=== PATIENT | female | born 1940 | race Caucasian/White ===

== ENCOUNTER → 2018-01-21 12:50 | Outpatient (CLI) | payer MEDICARE ==
[2016-06-18 08:53] VITALS: BMI 26.1
[~2018-01-21 12:50] MED LIST: BAYER CHEWABLE81 MG PO; ISORDIL5 MG PO; JANUVIA100 MG PO; LEVOTHYROXINE100 MCG PO; LIBRIUM 10 MG C10 MG PO; PLAVIX75 MG PO; ZESTRIL40 MG PO
== END | disposition home or self-care (01) ==
LOC: D.MRI 12:50
DX: R51 Headache (principal); R55 Syncope and collapse

== ENCOUNTER → 2018-02-17 09:06 | Outpatient (CLI) | payer MEDICARE ==
[2016-06-18 08:53] VITALS: BMI 26.1
== END | disposition home or self-care (01) ==
LOC: D.CT 09:06
DX: I65.23 Occlusion and stenosis of bilateral carotid arteries (principal)

== ENCOUNTER 2018-06-28 07:26 | Outpatient (CLI) | payer MEDICARE ==
[2016-06-18 08:53] VITALS: Ht 165.1 cm; Wt 71.8 kg
[~2018-06-28] VITALS: Ht 165.1 cm; Wt 71.8 kg
--- NOTE | ~2018-06-28 | OP ---
PATIENT NAME: MARLENY FITZPATRICK MEDICAL RECORD: [id number] :44 LOCATION:D.CAT ADMISSION DATE: SURGEON: XOCHITL CABRERA MD DATE OF OPERATION: 06/28/2018 PROCEDURES: 1. PTCA stent LAD. 2. PTCA stent left circumflex. 3. Intravascular ultrasound of LAD. 4. Intravascular ultrasound of left circumflex. 5. Left heart catheterization. 6. Selective coronary angiography. 7. Left ventriculogram. INDICATION: Unstable angina and coronary artery disease. PROCEDURE IN DETAIL: After informed consent was obtained and after a detailed description of risks, benefits as well as alternative therapies, the patient elected to proceed with angiogram and angioplasty. The right femoral area was prepped and draped in normal sterile fashion. Right femoral artery was cannulated via modified Seldinger technique with placement of 6-Slovenian sheath. All catheters exchanged through this sheath. FINDINGS: Left ventriculogram was performed in standard 30-degree EMMANUEL view, reveals good cardiac wall motion throughout all segments. Overall ejection fraction estimated 60%. SELECTIVE CORONARY ANGIOGRAPHY: 1. Left main showed no significant angiographic disease. 2. Left anterior descending has greater than 75% stenosis confirmed by intravascular ultrasound in the mid vessel. Previously placed stents are widely patent with no significant restenosis. 3. The left circumflex has previously placed stents as well. These are widely patent with no significant restenosis; however, there is a 75% to 80% stenosis in the mid vessel confirmed by intravascular ultrasound. 4. The right coronary artery has mild irregularities, but no flow-limiting stenosis. PTCA STENT OF THE LAD AND CIRCUMFLEX: The LAD was addressed with a 3.0 x 12 mm Integrity. The left circumflex with a 4.0 x 12 mm Integrity. Result was 0% residual stenosis. OVERALL IMPRESSION: Successful PTCA stent of the LAD and circumflex, both going from 75% to 80% initial stenosis to 0% residual. TRANSINT:[id number] Voice Confirmation ID: [id number] DOCUMENT ID: [id number] OPERATIVE REPORT [id number] FITZPATRICKMARLENY ESPARZA XOCHITL SALAZAR MD at 1324 CC: [id number] DICTATION DATE: 06/28/18 1441 FIREBRICK LAYER: 06/28/18 1535 DEP CLI 06/28/18 [facility] [address] [place] [address]
--- NOTE | ~2018-06-28 | CN ---
PATIENT NAME:MARLENY LOUIS MEDICAL RECORD: [id number] : 44 LOCATION:D.CAT ADMIT DATE: ACCOUNT: [id number] CONSULTING PHYSICIAN: XOCHITL CABRERA MD REFERRING PHYSICIAN: SANDRO BHATIA MD DATE OF CONSULTATION: 06/28/2018 CARDIOLOGY CONSULT DIAGNOSES: 1. Atrial fibrillation with rapid ventricular response. 2. Abnormal ECG. 3. Coronary artery disease. 4. Previous percutaneous transluminal coronary angioplasty stent. 5. Hypertension. HISTORY OF PRESENT ILLNESS: Ms. Louis presents with palpitations and some chest heaviness today, was found to be in atrial fibrillation with rapid response. Her EKG is concerning that there is ST-T changes in the inferolateral leads with this. She spontaneously converted to sinus rhythm, was given 80 mg of sotalol, has no symptomatology at this time. PHYSICAL EXAMINATION: GENERAL APPEARANCE: Well-nourished, well-developed, appears stated age. Level of distress, comfortable. PSYCHIATRIC: Mental status, alert, normal affect. Orientation, oriented to time, place and person. EYES: Lids and conjunctiva, noninjected. No discharge, no pallor. ENT: Lips, teeth, gums, normal dentition. Oropharynx, no cyanosis, no pallor. NECK: Carotid arteries, bilateral normal upstroke, no bruits, no thrills. JUGULAR VEINS: No jugular venous pressure or distention. CERVICAL LYMPH NODES: Nontender, nonenlarged. THYROID: Not enlarged. Nontender. No nodules. LUNGS: Respiratory effort, unlabored. CHEST: Normal curvature. No thoracic deformity. No chest wall tenderness. Percussion, resonant. Auscultation, clear. No wheezes, no rales, no rhonchi. CARDIOVASCULAR: Precordial exam, nondisplaced. No heaves or pericardial thrills. Rate and rhythm, regular. Heart sounds, normal S1, normal S2. No S3, no gallop, no rub. Systolic murmur, not heard. Diastolic murmur, not heard. EXTREMITIES: No cyanosis, no edema. Peripheral pulses, full and equal in all extremities, except as noted. No bruits appreciated. ABDOMEN: Soft, nondistended. Normal aorta. No bruit. Nontender. No masses. Liver, nontender, no hepatomegaly. Spleen, nontender, no splenomegaly. MUSCULOSKELETAL: No joint tenderness. No joint swelling. No erythema. NEUROLOGICAL: Normal gait, normal strength, normal tone. SKIN: Warm and dry. OVERALL IMPRESSION: Atrial fibrillation with EKG changes, most likely this is ischemic in nature. We will proceed with coronary angiography. Further care depends upon findings of the angiography. TRANSINT:[id number] Voice Confirmation ID: [id number] DOCUMENT ID: [id number] CONSULT REPORT [id number] MARLENY LOUIS JEFFREY MD at 1324 CC: [id number] DICTATION DATE: 06/28/18 0942 SUPERVISOR RESPIRATORY: 06/28/18 1019 DEP CLI 06/28/[address] [facility] [address] [place] [address]
--- NOTE | ~2018-06-28 | HEMODYNAMI ---
PATIENT:MARLENY FITZPATRICK MEDICAL RECORD: [id number] : 44 LOCATION:D. ADMISSION DATE: 06/28/18 Generatedon:06/28/201814:43 Patient name: MARLENY FITZPATRICK Patient #: [id number] : 1940 Date of study: 06/28/2018 Page: Of Hemodynamic Procedure Report Patient Data Patient Demographics Procedure consent was obtained First Name: MARLENY Gender: Female Last Name: NANETTE : 1940 [facility] Initial: SHOLA Age: 77 year(s) Patient #: [id number] Race: SSN: [id number] Additional ID: [id number] Contact details Address: [place] [address] State: [place] City: [place] Zip code: [address] Past Medical History Allergies Allergen Reaction Date Comments Reported Other allergy 06/18/2016 Cephlexin, Hydrocodone, adhesive Admission Admission Data Admission Date: 06/28/2018 Admission Time: 7:26 Weight (lbs.): 158.73 Weight (kg.): 72 Lab Results Lab Result Date: 06/28/2018 Lab Result Time: 0:00 Biochemistry Name Units Result Min Max BUN mg/dl 9 --(*---)-- 7 18 Creatinine mg/dl 0.8 --(-*--)-- 0.6 1.3 CBC Name Units Result Min Max Hemoglobin g/dl 15.3 --(-*--)-- 13.5 17.5 Platelets 10^3/l 235 --(-*--)-- 130 400 Procedure Procedure Types Cath Procedure Diagnostic Procedure [facility] w/Coronaries FFR/IVUS Intra-Coronary IVUS Initial Intra-Coronary IVUS Additional PCI Procedure Coronary Stent Coronary Stent Initial x2 Procedure Description Procedure Date Procedure Date: 06/28/2018 Procedure Start Time: 14:20 Procedure End Time: 14:41 Procedure Staff Name Function John Mueller MD Performing Physician Wilder Roberson RT Monitor Tana Stone RN Nurse Jody Borja RT Scrub Procedure Data Cath Procedure Fluoroscopy Diagnostic fluoroscopy Total fluoroscopy Time: 4.8 time: 4.8 min min Diagnostic fluoroscopy Total fluoroscopy dose: 359 dose: 359 mGy mGy Contrast Material Contrast Material Type Amount (ml) Isovue 300 99 Entry Location Entry Primary Successful Side Size Upsize Upsize Entry Closure Succes sful Closure Location (Fr) 1 (Fr) 2 (Fr) Remarks Device Remarks Femoral Right 5 Fr 6 Fr Exoseal artery Short Estimated blood loss: 10 ml Diagnostic catheters Device Type Used For End Catheter Placement MULTIPACK Pigtail 5 Fr Procedure catheter MULTIPACK JL 4.0 5Fr Procedure catheter MULTIPACK 3DRC 5Fr Procedure catheter Procedure Complications No complications Procedure Medications Medication Administration Route Dosage Oxygen etCO2 Nasal cannula 2 l/min Lidocaine 2% added to field 20 Heparin Flush Bag added to field 2 bags (1000units/500ml NS) 0.9% NaCl I.V. 100 ml/hr Versed I.V. 1 mg Fentanyl I.V. 50 mcg Heparin Bolus I.V. 4000 units Versed I.V. 0.5 mg Fentanyl I.V. 25 mcg Hemodynamics Rest HGB: 15.3 (g/dl) Heart Rate: 61 (bpm) Pressure Samples Time Site Value (mmHg) Purpose Heart Use Rate(bpm) 14:23 AO 101/52(71) Snapshot 67 Snapshots Pre Cath Intra NCS Post Cath Vital Signs Time Heart Resp SPO2 etCO2 NIBP (mmHg) Rhythm Pain Sedation Rate (ipm) (%) (mmHg) Status Level (bpm) 14:02:52 61 23 99 31.7 156/78(133) NSR 0 (11) 10(A) , No pain 14:07:04 59 16 94 30.9 122/67(95) NSR 0 (11) 10(A) , No pain 14:11:22 62 15 93 39.9 115/63(98) NSR 0 (11) 10(A) , No pain 14:15:32 67 16 94 41.4 107/65(88) NSR 0 (11) 10(A) , No pain 14:19:40 68 18 93 35.4 115/70(104) NSR 0 (11) 9(A) , No pain 14:23:52 92 15 94 32.4 103/65(86) NSR 0 (11) 9(A) , No pain 14:28:00 68 15 94 33.1 115/67(98) NSR 0 (11) 9(A) , No pain 14:32:14 69 14 94 28.6 111/59(83) NSR 0 (11) 9(A) , No pain 14:36:28 72 16 93 35.4 110/58(90) NSR 0 (11) 9(A) , No pain 14:39:50 69 17 95 32.4 111/58(81) NSR 0 (11) 10(A) , No pain Medications Time Medication Route Dose Verified Delivered Reason Notes Effectiveness by by 14:05:38 Oxygen etCO2 2 John Buffie used for Nasal l/min Ervin Stone RN procedure cannula 14:05:48 Lidocaine 2% added 20ml John John for local to vial Ervin Mueller MD anesthetic field 14:05:54 Heparin Flush added 2 John John used for Bag to bags Ervin Mueller MD procedure (1000units/500ml field NS) 14:06:04 0.9% NaCl I.V. 100 John Buffie Per physician ml/hr Ervin Stone RN 14:15:26 Versed I.V. 1 mg John Buffie for sedation Ervin Stone RN 14:15:33 Fentanyl I.V. 50 John Buffie for sedation mcg Ervin Stone RN 14:30:00 Heparin Bolus I.V. 4000 Johnradha Gastonie for verif ied units Ervni Stone RN anticoagulation with dr mueller 14:35:04 Versed I.V. 0.5 John Buffie for sedation mg Ervin Stone RN 14:35:10 Fentanyl I.V. 25 John Buffie for sedation mcg Ervin Stone RN Procedure Log Time Note 13:31:43 Time tracking: Regular hours (M-F 7:00 - 5:00) 13:31:47 Plan of Care:Hemodynamics will remain stable., Cardiac rhythm will remain stable., Comfort level will be maintained., Respiratory function will remain adequate., Patient/ family verbilizes understanding of procedure., Procedure tolerated without complication., Recovers from procedure without complications.. 13:42:37 Wilder Da RT(R) sent for patient. Start room use. 13:54:44 Patient received from ED to CCL 3 Alert and oriented. Tansferred to table in Supine position. 13:54:47 Warm blankets applied, and yessica hugger turned on for patient comfort. 13:54:47 Correct patient and procedure confirmed by team. 13:54:49 Signed procedure consent form obtained from patient. 13:54:49 ECG and BP/O2 sat monitors applied to patient. 13:54:50 Full Disclosure recording started 14:00:46 Vital chart was started 14:00:53 Rhythm: atrial fibrillation 14:03:08 Baseline sample Acquired. 14:03:15 H&P Date Dictated: 06/28/2018 Emergent; H&P N/A. 14:03:15 Pre-procedure instructions explained to patient. 14:03:16 Pre-op teaching completed and patient verbalized understanding. 14:03:24 Family in waiting room. 14:03:25 Patient NPO since Midnight. 14:03:27 Is the patient allergic to Iodine/contrast media? No. 14:03:29 Is patient on blood thinner?Yes 14:03:31 ACC The patient was administered the following blood thiners within the last 24 hours: ACCPlavix 14:03:33 Patient diabetic? Yes. 14:03:39 If diabetic: On Metformin? No 14:03:42 Previous problem with sedation/anesthesia? No ? 14:03:42 Snore? Yes 14:03:44 Sleep apnea? Yes 14:03:45 Deviated septum? No 14:03:46 Opens mouth fully? Yes 14:03:47 Sticks out tongue? Yes 14:03:49 Airway obstruction? No ? 14:03:52 Dentures? No ? 14:03:55 Pre procedure: right dorsailis pedis pulse 1+ Palpable, but thready & weak; easily obliterated 14:03:57 Patient pain scale 0/10 ?. 14:04:01 IV patent on arrival in left forearm with 0.9% NaCl at [facility]. 14:04:04 Lab results completed and on chart. 14:04:06 Right groin area was prepped with chlora-prep and draped in sterile fashion 14:04:07 Alarms reviewed by R. N. 14:04:07 Sharps counted by scrub and verified by REdisonN. 14:05:38 Oxygen 2 l/min etCO2 Nasal cannula was administered by Tana Stone RN; used for procedure; 14:05:48 Lidocaine 2% 20ml vial added to field was administered by John Mueller MD; for local anesthetic; 14:05:54 Heparin Flush Bag (1000units/500ml NS) 2 bags added to field was administered by John Mueller MD; used for procedure; 14:05:57 Use device set Femoral Dx 14:05:59 Tegaderm 4 x 4 (1626W) opened to sterile field. 14:06:00 ACIST Manifold (02274) opened to sterile field. 14:06:01 ACIST Hand Control (61407) opened to sterile field. 14:06:03 ACIST Syringe (33789) opened to sterile field. 14:06:03 Bag Decanter (2002S) opened to sterile field. 14:06:03 Medline Cath Pack ([id number]) opened to sterile field. 14:06:04 0.9% NaCl 100 ml/hr I.V. was administered by Tana Stone RN; Per physician; 14:06:05 DIAGNOSTIC WIRE .035 260cm J wire (502794) opened to sterile field. 14:06:11 DIAGNOSTIC Multipack 5Fr catheter set (YY8192) opened to sterile field. 14:06:13 SHEATH 5FR [place] (VKB297) opened to sterile field. 14:06:56 Patient Weight : 158.73 lbs 14:12:38 Lab Result : Creatinine 0.8 mg/dl 14:12:38 Lab Result : BUN 9 mg/dl 14:12:38 Lab Result : Platelets 235 10^3/l 14:12:38 Lab Result : Hemoglobin 15.3 g/dl 14:13:44 --------ALL STOP TIME OUT------ 14:13:45 Final Timeout: patient, procedure, and site verified with staff and physician. All members of the team are in agreement. 14:13:47 Right groin site verified by team. 14:13:49 Physical assessment completed. ASA score P 2 - A patient with mild systemic disease as per John Mueller MD. 14:13:52 Sedation plan: IV Moderate Sedation Medication:Versed, Fentanyl 14:15:26 Versed 1 mg I.V. was administered by Tana Stone RN; for sedation; 14:15:33 Fentanyl 50 mcg I.V. was administered by Tana Stone RN; for sedation; 14:20:06 Procedure started. 14:20:10 Local anesthetic to right femoral artery with Lidocaine 2% by John Mueller MD.INITIAL ACCESS ONLY 14:21:00 A 5 Fr sheath was inserted into the Right Femoral artery 14:21:26 A MULTIPACK Pigtail 5 Fr catheter was advanced over the wire and used for Procedure. 14:21:27 Zero performed for pressure channel P1 14:22:02 LV angiography performed. 14:22:03 LV gram done using EMMANUEL 14:22:10 EF : 55 % 14:: Injector settings: Ml/sec: 10, Volume: 20, 14:22:28 Catheter removed. 14:22:41 A MULTIPACK JL 4.0 5Fr catheter was advanced over the wire and used for Procedure. 14:23:04 Use device set TAU PCI 14:23:16 LCA angiography performed. 14:23:24 SHEATH 6FR [place] (CYW613) opened to sterile field. 14:23:28 CHOICE PT Extra Support 182cm wire ([id number]) opened to sterile field. 14:23:31 INFLATOR Merit BasixCompak (AA0182) opened to sterile field. 14:23:33 Catheter removed. 14:23:40 A MULTIPACK 3DRC 5Fr catheter was advanced over the wire and used for Procedure. 14:24:23 RCA angiography performed. 14:24:24 Catheter removed. 14:24:26 GUIDE 6FR XBLAD 3.5 catheter ([id number]) opened to sterile field. 14:24:33 [place] IVUS Catheter (83659N) opened to sterile field. 14:25:35 Sheath upsized to a 6 Fr Short. 14:25:46 6 Fr XBLAD 3.5 guide catheter was inserted over the wire 14:26:10 CPTXS wire advanced. 14:26:26 Wire advanced across lesion. 14:26:32 IVUS catheter advanced over wire. 14:26:50 IVUS pass to Circ lesion performed. 14:27:40 IVUS catheter removed over wire. 14:30:00 Heparin Bolus 4000 units I.V. was administered by Tana Stone RN; for anticoagulation; verified with dr mueller 14:31:28 Place stent Inflation Number: 1 A INTEGRITY RX 4.0 x 12 stent ([id number]) was prepped and advanced across the Mid CX. The stent was deployed at 13 IRENE for 0:10 (min:sec). 14:31:45 Stent catheter was removed intact over wire. 14:31:53 Wire redirected to LAD. 14:32:31 IVUS catheter advanced over wire. 14:33:02 IVUS pass to LAD lesion performed. 14:33:10 IVUS catheter removed over wire. 14:35:04 Versed 0.5 mg I.V. was administered by Tana Stone RN; for sedation; 14:35:10 Fentanyl 25 mcg I.V. was administered by Tana Stone RN; for sedation; 14:35:25 Place stent Inflation Number: 1 A INTEGRITY RX 3.0 x 12 stent ([id number]) was prepped and advanced across the Mid LAD. The stent was deployed at 15 IRENE for 0:10 (min:sec). 14:36:19 EXOSEAL 6Fr (EX600) opened to sterile field. 14:36:26 Stent catheter was removed intact over wire. 14:36:26 Wire removed. 14:36:27 Guide catheter removed. 14:38:48 Sheath removed intact; hemostasis achieved with Exoseal to the Right Femoral artery. 14:38:51 Procedure ended.(Physican Out) 14:39:57 Fluoroscopy time 04.80 minutes. 14:40:01 Fluoroscopy dose: 359 mGy 14:40:01 Flurop Dose total: 359 14:40:05 Contrast amount:Isovue 300 99ml. 14:40:07 Sharps counted by scrub and verified by R.N. 14:40:08 Insertion/operative site no bleeding no hematoma. 14:40:11 Post-op/insertion site Right Femoral artery dressed using a 4 x 4 and Tegaderm. 14:40:12 Post Procedure Pulses reassessed and unchanged 14:40:14 Post-procedure physical assessment completed. ASA score P 2 - A patient with mild systemic disease as per John Mueller MD. 14:40:16 Post procedure rhythm: unchanged. 14:40:19 Estimated blood loss: 10 ml 14:40:21 Post procedure instruction explained to patient.Patient verbalizes understanding. 14:40:21 Patient needs reinforcement of post procedure teaching. 14:40:32 Procedure type changed to Cath procedure, Diagnostic procedure, LHC, LHC w/Coronaries, FFR/IVUS, Intra-Coronary IVUS Initial, Intra-Coronary IVUS Additional, PCI procedure, Coronary Stent, Coronary Stent Initial x2 14:40:33 Procedure and supply charges have been captured, reviewed, submitted and are correct. 14:40:36 Procedure Complication : No complications 14:41:11 Vital chart was stopped 14:41:11 See physician's report for complete and final results. 14:41:13 Report given to Pre/Post Procedure Room. 14:41:23 Patient transfered to Pre/Post Procedure Room with Stretcher. 14:41:25 Procedure ended. 14:41:25 Full Disclosure recording stopped 14:42:41 End room use (Document Last) Intervention Summary Intervention Notes Time ActionType Lesion and Equipment Action# Pressure Duration Attributes Used 14:31:28 Place stent Mid CX INTEGRITY RX 1 13 00:10 4.0 x 12 stent ([id number]) 14:35:25 Place stent Mid LAD INTEGRITY RX 1 15 00:10 3.0 x 12 stent ([id number]) Device Usage Item Name Manufacture Quantity Catalog Number Hospital Part Current Mini mal Lot# / Charge Number Stock Stock Serial# Code Tegaderm 4 x 3M 1 1626W 147585 515296 103971 5 4 (1626W) ACIST Acist 1 19535 443965 854129 024075 5 Manifold Medical (25820) Systems Inc ACIST Hand Acist 1 90890 560763 800547 035339 5 Control Medical (49017) Systems Inc ACIST Acist 1 85744 095809 605564 777742 20 Syringe Medical (69561) Systems Inc Bag Decanter Microtek 1 2001S 847451 61434 997110 5 (2001S) Medical Inc. Medline Cath Medline 1 [id number] 207979 31820 843854 5 Pack ([id number]) DIAGNOSTIC St Jamar 1 237428 580548 458794 088969 30 WIRE .035 260cm J wire (940712) DIAGNOSTIC Cardinal 1 JB5136 002287 12937 713009 30 FIT Biotech Health 5Fr catheter set (VQ9170) SHEATH 5FR Terumo 1 CAC095 883424 291719 804193 5 [place] (GXT997) MULTIPACK Cardinal 1 128194 5 Pigtail 5 Fr Health catheter MULTIPACK JL Cardinal 1 455040 5 4.0 5Fr Health catheter SHEATH 6FR Terumo 1 GLP717 551254 376086 073105 40 [place] (ENZ624) CHOICE PT [place] 1 [id number] 846948 576012 539386 5 Extra Scientific Support 182cm wire ([id number]) INFLATOR Merit 1 NM8966 590525 163307 706010 15 [facility] Medical BasixCompak (VR9325) MULTIPACK Cardinal 1 240069 5 3DRC 5Fr Health catheter GUIDE 6FR Cardinal 1 [id number] 733966 697180 466800 10 XBLAD 3.5 Health catheter ([id number]) [place] 1 57132D 786585 826587 668289 8 [place] IVUS Catheter (06906J) INTEGRITY RX Medtronic 1 [id number] 164043 516744 325260 5 [id number] 4.0 x 12 stent ([id number]) INTEGRITY RX Medtronic 1 [id number] 243177 139921 869062 5 [id number] 3.0 x 12 stent ([id number]) EXOSEAL 6Fr Cardinal 1 EX600 557569 911972 291356 10 (EX600) Health Signature Audit [place] Stage Time Signature Unsigned Intra-Procedure 06/28/2018 Wilder Roberson 2:43:20 PM RT(R) Signatures Monitor : Wilder Roberson RT Signature : Date : Time : [facility] [address] [place] [address]
[2018-06-28 08:00] LABS: BASOPHILS 0.4 % (0-2); EOSINOPHILS 4.3 % (0-7); HEMATOCRIT 44.4 % (36.0-48.0); HEMOGLOBIN 15.3 g/dL (12-16); IMMATURE GRANULOCYTES 0.5 % (0-5); LYMPHOCYTES 32.9 % (15-50); MCH 31.5 pg (26.0-34.0); MCHC 34.5 g/dL (31.0-37.0); MCV 91.4 fL (80.0-100.0); MEAN PLATELET VOLUME 9.3 fL (7.4-10.4); MONOCYTES 8.5 % (2-11); NEUTROPHILS 53.4 % (40-80); PLATELET COUNT 235 10x3/uL (130-400); RBC 4.86 10x6/uL (4.00-5.40); RDW 12.6 % (11.5-14.5); WBC 11.8 10x3/uL (4.8-10.8)
[2018-06-28 08:29] LABS: ALBUMIN 3.2 g/dL (3.4-5.0); ALKALINE PHOSPHATASE 134 U/L (46-116); ALT (SGPT) 74 U/L (10-68); CALC OSMOLALITY 279 mosm/kg (275-300); CALCIUM 9.5 mg/dL (8.5-10.1); CARBON DIOXIDE 25.2 mmol/L (21.0-32.0); CHLORIDE - SERUM 100 mmol/L (98-107); CKMB 0.8 U/L (0.0-3.6); CREATINE KINASE 245 UL (21-215); CREATININE - SERUM 0.8 mg/dL (0.6-1.3); GLUCOSE 232 mg/dL (74-106); MAGNESIUM - SERUM 1.8 mg/dL (1.8-2.4); POTASSIUM - SERUM 4.5 mmol/L (3.5-5.1); PROTEIN - SERUM 8.4 g/dL (6.4-8.2); SODIUM 137 mmol/L (136-145); THYROID STIMULATING HORMONE 6.08 uIU/mL (0.36-3.74); UREA NITROGEN 9 mg/dL (7-18); eGFR NON AFRICAN AMERICAN 74 mL/min (90-120)
[2018-06-28 13:45] VITALS: BP 149/72
== END 2018-06-28 18:25 | disposition home or self-care (01) ==
LOC: D.CATH 07:26 → D.ER 07:26 → EDSTATUS 15:10 → D.CATH 15:11
PROVIDERS: Emergency Medicine
DX: I25.110 Atherosclerotic heart disease of native coronary artery with unstable angina pectoris (principal); Z01.812 Encounter for preprocedural laboratory examination; I48.91 Unspecified atrial fibrillation; R94.31 Abnormal electrocardiogram [ECG] [EKG]; Z95.5 Presence of coronary angioplasty implant and graft; I10 Essential (primary) hypertension

== ENCOUNTER 2018-08-14 15:34 | Observation (INO) | payer MEDICARE ==
[2018-08-14] VITALS (7 sets, daily range): BP systolic 129–162; BP diastolic 57–84; BMI 25.3
[~2018-08-14] VITALS: Ht 165.1 cm; Wt 68.6 kg
--- NOTE | ~2018-08-14 | HEMODYNAMI ---
PATIENT:MARLENY FITZPATRICK MEDICAL RECORD: [id number] : 44 [id number] ADMISSION DATE: 08/14/18 Generatedon:08/15/201811:42 Patient name: MARLENY FITZPATRICK Patient #: [id number] : 1940 Date of study: 08/15/2018 Page: Of Hemodynamic Procedure Report Patient Data Patient Demographics Procedure consent was obtained First Name: MARLENY Gender: Female Last Name: NANETTE : 1940 [facility] Initial: SHOLA Age: 77 year(s) Patient #: [id number] Race: SSN: [id number] Additional ID: [id number] Contact details Address: [place] [address] State: [place] City: [place] Zip code: [address] Past Medical History Allergies Allergen Reaction Date Comments Reported Other allergy 08/15/2018 Cephlexin, Hydrocodone, adhesive, IV Benadryl Natural rubber 08/15/2018 and latex Admission Admission Data Admission Date: 08/14/2018 Admission Time: 17:19 Room #: D.2114 Procedure Procedure Types Cath Procedure Diagnostic Procedure [facility] w/Coronaries Sedation Charges Moderate Sedation up to 15 minutes PCI Procedure Coronary Stent Coronary Stent Initial Procedure Description Procedure Date Procedure Date: 08/15/2018 Procedure Start Time: 11:18 Procedure End Time: 11:41 Procedure Staff Name Function Terrence Carey MD Performing Physician Jody Borja RT Monitor Sean Mooney RN Nurse Khushi Tong RT Scrub Procedure Data Cath Procedure Fluoroscopy Diagnostic fluoroscopy Total fluoroscopy Time: 5.5 time: 5.5 min min Diagnostic fluoroscopy Total fluoroscopy dose: dose: 1220 mGy 1220 mGy Contrast Material Contrast Material Type Amount (ml) Isovue 300 112 Entry Location Entry Primary Successful Side Size Upsize Upsize Entry Closure Succes sful Closure Location (Fr) 1 (Fr) 2 (Fr) Remarks Device Remarks Femoral Right 5 Fr 6 Fr Exoseal artery Short Estimated blood loss: 10 ml Diagnostic catheters Device Type Used For End Catheter Placement MULTIPACK JL 4.0 5Fr LV Angiography catheter MULTIPACK 3DRC 5Fr Right Coronary catheter Angiography MULTIPACK Pigtail 5 Fr LV Angiography catheter Procedure Complications No complications Procedure Medications Medication Administration Route Dosage Oxygen NC 2 l/min Heparin Flush Bag added to field 2 bags (1000units/500ml NS) 0.9% NaCl I.V. 100 ml/hr Lidocaine 2% added to field 20 Fentanyl I.V. 50 mcg Versed I.V. 1 mg Fentanyl I.V. 50 mcg Versed I.V. 1 mg Heparin Bolus I.V. 4000 units Integrilin (Bolus I.V. 6.2 ml 2mg/ml) Integrilin (Bolus wasted 3.8 ml 2mg/ml) Hemodynamics Rest Heart Rate: 71 (bpm) Pressure Samples Time Site Value (mmHg) Purpose Heart Use Rate(bpm) 11:26 LV 122/17,20 EDP 78 11:26 AO 130/63(94) Pullback 80 11:26 LV 114/15,13 Pullback 80 Gradients Valve Time Site 1 Site 2 Mean SEP/DFP Peak To Heart Use (mmHg) (sec/min) Peak Rate (mmHg) (bpm) Aortic 11:26 LV AO 0 7 0 80 114/15,13 130/63(94) Calculations Valve P-P Mean Valve Index Valve Source Name Gradient Area Flow (cm2) Aortic 0 0 0 0 Snapshots Pre Cath Intra NCS Post Cath Vital Signs Time Heart Resp SPO2 etCO2 NIBP (mmHg) Rhythm Pain Sedation Rate (ipm) (%) (mmHg) Status Level (bpm) 11:09:54 79 17 99 0 133/65(113) NSR 0 (11) 10(A) , No pain 11:14:08 69 17 97 0 123/59(103) NSR 0 (11) 10(A) , No pain 11:18:18 68 17 95 0 97/59(80) NSR 0 (11) 10(A) , No pain 11:22:20 74 17 94 0 108/62(83) NSR 0 (11) 9(A) , No pain 11:26:21 80 17 94 0 115/70(105) NSR 0 (11) 9(A) , No pain 11:30:27 85 17 94 0 133/66(98) NSR 0 (11) 9(A) , No pain 11:34:37 92 16 95 0 127/74(97) NSR 0 (11) 9(A) , No pain 11:38:45 97 16 95 0 121/73(92) NSR 0 (11) 9(A) , No pain 11:40:13 89 16 96 0 142/80(106) NSR 0 (11) 9(A) , No pain Medications Time Medication Route Dose Verified Delivered Reason Notes Effectiveness by by 11:10:17 Oxygen NC 2 Terrence Estrada Per physician l/min St Gonzalez Mooney RN, MD 11:10:25 Heparin Flush added 2 Terrence Sean used for Bag to bags [facility] Gonzalez Mooney RN procedure (1000units/500ml field POSADA NS) 11:10:33 0.9% NaCl I.V. 100 Terrence Ashrafy Per physician ml/hr [facility] Gonzalez Mooney RN, MD 11:10:41 Lidocaine 2% added 20ml Terrence Estrada used for to vial [facility] Gonzalez Mooney RN procedure field OPSADA 11:16:47 Fentanyl I.V. 50 Terrence Ashrafy for sedation mcg [facility] Gonzalez Mooney RN, MD 11:16:53 Versed I.V. 1 mg Terrence Estrada for sedation [facility] Gonzalez Mooney RN, MD 11:18:41 Fentanyl I.V. 50 Terrence Ashrafy for sedation mcg [facility] Gonzalez Mooney RN, MD 11:18:45 Versed I.V. 1 mg Terrence Estrada for sedation [facility] Gonzalez Mooney RN, MD 11:29:37 Heparin Bolus I.V. 4000 Terrence Estrada for units [facility] Gonzalez Mooney RN anticoagulation 11:29:49 Integrilin I.V. 6.2 Terrence Estrada for (Bolus 2mg/ml) ml St Gonzalez Mooney RN antiplatelet therapy 11:29:55 Integrilin wasted 3.8 Terrence Estrada for (Bolus 2mg/ml) ml St Gonzalez oMoney RN antiplatelet MD therapy Procedure Log Time Note 10:53:33 Sean Mooney RN sent for patient. Start room use. 10:53:34 Time tracking: Call back (After hours or weekends) 10:53:38 Plan of Care:Hemodynamics will remain stable., Cardiac rhythm will remain stable., Comfort level will be maintained., Respiratory function will remain adequate., Patient/ family verbilizes understanding of procedure., Procedure tolerated without complication., Recovers from procedure without complications.. 11:04:49 Patient received from Pre/Post Procedure Room to CCL 2 Alert and oriented. Tansferred to table in Supine position. 11:08:37 Vital chart was started 11:09:57 Warm blankets applied, and yessica hugger turned on for patient comfort. 11:09:57 Correct patient and procedure confirmed by team. 11:09:58 Signed procedure consent form obtained from patient. 11:09:59 ECG and BP/O2 sat monitors applied to patient. 11:10:01 Full Disclosure recording started 11:10:17 Oxygen 2 l/min NC was administered by Sean Mooney RN; Per physician; 11:10:25 Heparin Flush Bag (1000units/500ml NS) 2 bags added to field was administered by Sean Mooney RN; used for procedure; 11:10:27 Rhythm: sinus rhythm 11:10:33 Baseline sample Acquired. 11:10:33 0.9% NaCl 100 ml/hr I.V. was administered by Sean Mooney RN; Per physician; 11:10:37 H&P Date Dictated: 08/15/2018 Within 30 days and on chart.. 11:10:39 Pre-procedure instructions explained to patient. 11:10:39 Pre-op teaching completed and patient verbalized understanding. 11:10:41 Lidocaine 2% 20ml vial added to field was administered by Sean Mooney RN; used for procedure; 11:10:41 Family in patients room. 11:10:42 Patient NPO since Midnight. 11:11:26 Patient allergic to Other allergyCephlexin, Hydrocodone, adhesive, IV Benadryl 11:11:51 Patient allergic to Natural rubber and latex 11:11:55 Is the patient allergic to Iodine/contrast media? No. 11:12:01 Is patient on blood thinner?Yes 11:12:03 Patient diabetic? No. 11:12:12 ACC The patient was administered the following blood thiners within the last 24 hours: ACCPlavix 11:12:15 If diabetic: On Metformin? No 11:12:20 Previous problem with sedation/anesthesia? No ? 11:12:22 Snore? Yes 11:12:22 Sleep apnea? Yes 11:12:23 Deviated septum? No 11:12:24 Opens mouth fully? Yes 11:12:25 Sticks out tongue? Yes 11:12:26 Airway obstruction? No ? 11:12:30 Dentures? No ? 11:12:33 Pre procedure: right dorsailis pedis pulse 2+ Normal; easily identifiable; not easily obliterated 11:12:34 Patient pain scale 0/10 ?. 11:12:42 IV patent on arrival in left forearm with 0.9% NaCl at [facility]. 11:12:44 Lab results completed and on chart. 11:12:47 Right groin area was prepped with chlora-prep and draped in sterile fashion 11:12:48 Alarms reviewed by R. N. 11:12:49 Sharps counted by scrub and verified by R.N. 11:12:52 Use device set Femoral Dx 11:12:53 ACIST Syringe (12046) opened to sterile field. 11:12:53 Bag Decanter (2002S) opened to sterile field. 11:12:54 Medline Cath Pack ([id number]) opened to sterile field. 11:12:54 DIAGNOSTIC WIRE .035 260cm J wire (318707) opened to sterile field. 11:12:55 ACIST Hand Control (57322) opened to sterile field. 11:12:56 ACIST Manifold (33034) opened to sterile field. 11:12:56 DIAGNOSTIC Multipack 5Fr catheter set (LH6838) opened to sterile field. 11:12:57 Tegaderm 4 x 4 (1626W) opened to sterile field. 11:12:58 SHEATH 5FR Elkins (OTB272) opened to sterile field. 11:15:03 Baseline sample Acquired. 11:16:07 Final Timeout: patient, procedure, and site verified with staff and physician. All members of the team are in agreement. 11:16:08 Right groin site verified by team. 11:16:11 Fire Safety Assessment: A--An alcohol-based skin anteseptic being used preoperatively., C--Open oxygen or nitrous oxide is being used. 11:16:14 Physical assessment completed. ASA score P 2 - A patient with mild systemic disease as per Terrence Carey MD. 11:16:16 Sedation plan: IV Moderate Sedation Medication:Versed, Fentanyl 11:16:47 Fentanyl 50 mcg I.V. was administered by Sean Mooney RN; for sedation; 11:16:53 Versed 1 mg I.V. was administered by Sean Mooney RN; for sedation; 11:18:41 Fentanyl 50 mcg I.V. was administered by Sean Mooney RN; for sedation; 11:18:45 Versed 1 mg I.V. was administered by Sean Mooney RN; for sedation; 11:18:49 Procedure started. 11:18:52 Local anesthetic to right femoral artery with Lidocaine 2% by Terrence Carey MD.INITIAL ACCESS ONLY 11:18:54 Zero performed for pressure channel P1 11:19:53 A 5 Fr sheath was inserted into the Right Femoral artery 11:20:33 A MULTIPACK JL 4.0 5Fr catheter was advanced over the wire and used for LV Angiography. 11:22:36 Use device set [place] PCI 11:22:38 SHEATH 6FR Elkins (VJY947) opened to sterile field. 11:22:42 INFLATOR Merit BasixCompak (FF6614) opened to sterile field. 11:22:44 WHISPER 300cm guide wire ([id number]) opened to sterile field. 11:22:47 GUIDE 6FR XBLAD 3.5 catheter ([id number]) opened to sterile field. 11:23:00 Catheter removed. 11:23:05 A MULTIPACK 3DRC 5Fr catheter was advanced over the wire and used for Right Coronary Angiography. 11:23:51 Catheter removed. 11:23:58 A MULTIPACK Pigtail 5 Fr catheter was advanced over the wire and used for LV Angiography. 11:26:07 LV gram done using EMMANUEL 11:26:10 LV hemodynamics recorded. 11:26:12 Injector settings: Ml/sec: 10, Volume: 20, 11:26:25 Catheter removed. 11:27:22 Sheath upsized to a 6 Fr Short. 11:27:32 6 Fr XBLAD 3.5 guide catheter was inserted over the wire 11:29:37 Heparin Bolus 4000 units I.V. was administered by Sean Mooney RN; for anticoagulation; 11:29:49 Integrilin (Bolus 2mg/ml) 6.2 ml I.V. was administered by Sean Mooney RN; for antiplatelet therapy; 11:29:55 Integrilin (Bolus 2mg/ml) 3.8 ml wasted was administered by Sean Mooney RN; for antiplatelet therapy; 11:30:20 WHISPER wire advanced. 11:32:57 Place stent Inflation Number: 1 A RADHA OTW 2.5 x 15 stent ([id number]) was prepped and advanced across the Dist LAD. The stent was deployed at 14 IRENE for 0:30 (min:sec). 11:34:18 Stent catheter was removed intact over wire. 11:36:34 Inflation number: 1 The NC EUPHORA 3.5 x 15 balloon ([id number]) was reinflated across the Prox LAD, to 12 IRENE for 0:25 (min:sec). 11:37:14 Balloon removed over the wire. 11:37:33 Wire removed. 11:37:33 Guide catheter removed. 11:37:42 Sheath removed intact; hemostasis achieved with Exoseal to the Right Femoral artery. 11:37:46 Procedure ended.(Physican Out) 11:38:24 Fluoroscopy time 05.50 minutes. 11:38:33 Flurop Dose total: 1220 11:38:33 Fluoroscopy dose: 1220 mGy 11:38:37 Contrast amount:Isovue 300 112ml. 11:38:38 Sharps counted by scrub and verified by R.N. 11:38:40 Insertion/operative site no bleeding no hematoma. 11:38:43 Post-op/insertion site Right Femoral artery dressed using a 4 x 4 and Tegaderm. 11:38:47 Post right femoral artery:stable, clean and dry 11:38:48 Post Procedure Pulses reassessed and unchanged 11:38:51 Post-procedure physical assessment completed. ASA score P 2 - A patient with mild systemic disease as per Terrence Carey MD. 11:39:15 Post procedure rhythm: unchanged. 11:39:18 Estimated blood loss: 10 ml 11:39:20 Post procedure instruction explained to patient.Patient verbalizes understanding. 11:39:20 Patient needs reinforcement of post procedure teaching. 11:39:44 Procedure type changed to Cath procedure, Diagnostic procedure, LHC, LHC w/Coronaries, Sedation Charges, Moderate Sedation up to 15 minutes, PCI procedure, Coronary Stent, Coronary Stent Initial 11:39:49 Procedure Complication : No complications 11:39:52 See physician's report for complete and final results. 11:40:08 EXOSEAL 6Fr (EX600) opened to sterile field. 11:41:37 Procedure and supply charges have been captured, reviewed, submitted and are correct. 11:41:39 Vital chart was stopped 11:41:41 Report given to PCU. 11:41:45 Patient transfered to PCU with Bed. 11:41:56 Procedure ended. 11:41:56 Full Disclosure recording stopped 11:42:02 End room use (Document Last) Intervention Summary Intervention Notes Time ActionType Lesion and Equipment Action# Pressure Duration Attributes Used 11:32:57 Place stent Dist LAD RADHA OTW 2.5 1 14 00:30 x 15 stent ([id number]) 11:36:34 Reinflate Prox LAD NC EUPHORA 1 12 00:25 balloon 3.5 x 15 balloon ([id number]) Device Usage Item Name Manufacture Quantity Catalog Hospital Part Current Minim al Lot# / Number Charge Number Stock Stock Serial# Code ACIST Syringe Acist 1 44956 921789 992479 096454 20 (87671) Medical Systems Inc Bag Decanter Microtek 1 2001S 639234 25709 902289 5 (2001S) Medical Inc. Medline Cath Medline 1 [id number] 193786 52640 913730 5 Pack ([id number]) DIAGNOSTIC St Jamar 1 657823 426673 737740 988355 30 WIRE .035 260cm J wire (090150) ACIST Hand Acist 1 30253 950284 462651 075827 5 Control Medical (54638) Systems Inc ACIST Acist 1 59172 028758 495073 758401 5 Manifold Medical (31705) Systems Inc DIAGNOSTIC Cardinal 1 SR8250 368137 10064 655212 30 Multipack 5Fr Health catheter set (TK8548) Tegaderm 4 x 3M 1 1626W 729692 759173 502256 5 4 (1626W) SHEATH 5FR Terumo 1 IOW410 493987 447460 534105 5 Elkins (WVP759) MULTIPACK JL Cardinal 1 599318 5 4.0 5Fr Health catheter SHEATH 6FR Terumo 1 BKX739 879424 123704 887514 40 Elkins (IXS981) INFLATOR [facility] 1 YN1917 696087 621290 224069 15 [facility] BasixCompak (MM0714) WHISPER 300cm Lyman 1 [id number] 519786 297860 679409 5 guide wire Vascular ([id number]) GUIDE 6FR Cardinal 1 [id number] 085167 449700 966573 10 XBLAD 3.5 Health catheter ([id number]) MULTIPACK Cardinal 1 749443 5 3DRC 5Fr Health catheter MULTIPACK Cardinal 1 424817 5 Pigtail 5 Fr Health catheter RADHA OTW 2.5 Medtronic 1 [id number] 443613 48343 529753 5 [id number] x 15 stent ([id number]) NC EUPHORA Medtronic 1 [id number] 375156 758544 964441 1 [id number] 3.5 x 15 balloon ([id number]) EXOSEAL 6Fr Cardinal 1 EX600 762054 525802 665629 10 (EX600) Health Signature Audit [place] Stage Time Signature Unsigned Intra-Procedure 08/15/2018 Jody 11:42:17 AM Counts RT(R) Signatures Monitor : Jody Signature : Counts RT Date : Time : [address] [address]
[2018-08-14 16:10] LABS: BASOPHILS 0.7 % (0-2); EOSINOPHILS 6.7 % (0-7); HEMATOCRIT 42.9 % (36.0-48.0); HEMOGLOBIN 14.8 g/dL (12-16); IMMATURE GRANULOCYTES 0.4 % (0-5); LYMPHOCYTES 21.3 % (15-50); MCH 31.3 pg (26.0-34.0); MCHC 34.5 g/dL (31.0-37.0); MCV 90.7 fL (80.0-100.0); MEAN PLATELET VOLUME 9.4 fL (7.4-10.4); MONOCYTES 6.7 % (2-11); NEUTROPHILS 64.2 % (40-80); PLATELET COUNT 236 10x3/uL (130-400); RBC 4.73 10x6/uL (4.00-5.40); RDW 12.6 % (11.5-14.5); WBC 10.8 10x3/uL (4.8-10.8)
[2018-08-14 16:27] LABS: APTT 34.6 SECONDS (22.8-39.4); INR 1.01 (0.85-1.17); PROTIME 12.8 SECONDS (11.6-15.0)
[2018-08-14 16:28] LABS: D-DIMER-QUANTITATIVE 0.31 ug/mLFEU (0.20-0.54)
[2018-08-14 16:33] LABS: ALBUMIN 3.3 g/dL (3.4-5.0); ALKALINE PHOSPHATASE 116 U/L (46-116); ALT (SGPT) 63 U/L (10-68); BILIRUBIN - TOTAL 0.44 mg/dL (0.2-1.3); CALC OSMOLALITY 282 mosm/kg (275-300); CALCIUM 9.1 mg/dL (8.5-10.1); CARBON DIOXIDE 28.6 mmol/L (21.0-32.0); CHLORIDE - SERUM 101 mmol/L (98-107); CREATININE - SERUM 0.8 mg/dL (0.6-1.3); GLUCOSE 196 mg/dL (74-106); POTASSIUM - SERUM 4.4 mmol/L (3.5-5.1); PROTEIN - SERUM 8.4 g/dL (6.4-8.2); SODIUM 139 mmol/L (136-145); UREA NITROGEN 13 mg/dL (7-18); eGFR NON AFRICAN AMERICAN 74 mL/min (90-120)
[2018-08-14 16:49] LABS: CKMB 0.6 U/L (0.0-3.6); LIPASE 152 U/L (73-393)
[2018-08-14 16:50] LABS: TROPONIN-I 0.205 ng/mL (0.000-0.060)
[2018-08-14 18:12] LABS: CKMB 0.5 U/L (0.0-3.6); CREATINE KINASE 212 UL (21-215)
[2018-08-14 18:17] LABS: TROPONIN-I 0.249 ng/mL (0.000-0.060)
--- NOTE | 2018-08-14 19:04 | NUR ---
REPORT FROM LAUREN IN ER AT 1850.
--- NOTE | 2018-08-14 20:17 | NUR ---
PT ARRIVED TO UNIT AT 1950. UPSET ABOUT BEING ADMITTED TO [facility] BUT HER CONSULT FOR CARDIO IS DR MALONE. PT REPORTS AN EXTENSIVE HISTORY BETWEEN HER AND DR BHANDARI OVER HER . SHE BECOMES VERY TEARFUL AND UPSET WHEN TALKING ABOUT HER AND HIS CARDIAC HISTORY. SHE ADMITS TO CURRENTLY HAVING CHEST PAIN AND THAT THE NITRO DID RELIEVE IT A LITTLE. CALMED PATIENT DOWN AND SPOKE WITH HER ABOUT LETTING STAFF MONITOR HER OVERNIGHT, COLLECT MORE DATA FOR THE MD AND THEN IF SHE IS STABLE SHE CAN ASK HIM TO LET HER WAIT UNTIL SHE CAN SEE HER (DR CABRERA) MANAGER SOCIAL RESPONSIBILITY THURSDAY MORNING IF SHE IS STABLE. PT CALMER. TOOK ONE OF HER HOME LIBRIUMS AND IS NOW EATING DINNER. HOME MEDS REVIEWED. ASSESSMENT COMPLETED. TELEMETRY INITIATED. .
[2018-08-15 00:40] LABS: CKMB 1.4 U/L (0.0-3.6); CREATINE KINASE 202 UL (21-215)
[2018-08-15 00:45] LABS: TROPONIN-I 0.573 ng/mL (0.000-0.060)
[2018-08-15 03:55] VITALS: BP 124/56
--- NOTE | 2018-08-15 06:00 | NUR ---
PT RESTED THROUGH THE NIGHT. SR PER TELEMETRY. NO REPORTS OF CHEST PAIN. NPO UNTIL SEEN BY DOPE HOUSE OPERATOR HELPER.
[2018-08-15 06:40] LABS: CKMB 0.8 U/L (0.0-3.6); CREATINE KINASE 197 UL (21-215); TROPONIN-I 0.676 ng/mL (0.000-0.060)
[2018-08-15 08:42] LABS: BASOPHILS 0.5 % (0-2); HEMATOCRIT 39.2 % (36.0-48.0); HEMOGLOBIN 13.1 g/dL (12-16); IMMATURE GRANULOCYTES 0.3 % (0-5); LYMPHOCYTES 28.7 % (15-50); MCH 30.5 pg (26.0-34.0); MCHC 33.4 g/dL (31.0-37.0); MCV 91.2 fL (80.0-100.0); MEAN PLATELET VOLUME 9.5 fL (7.4-10.4); MONOCYTES 8.6 % (2-11); NEUTROPHILS 54.9 % (40-80); PLATELET COUNT 223 10x3/uL (130-400); RDW 12.8 % (11.5-14.5); WBC 11.8 10x3/uL (4.8-10.8)
[2018-08-15 08:45] LABS: ANION GAP 17.9 mmol/L (8-16); CALCIUM 8.6 mg/dL (8.5-10.1); CARBON DIOXIDE 23.3 mmol/L (21.0-32.0); CREATININE - SERUM 0.9 mg/dL (0.6-1.3); POTASSIUM - SERUM 4.2 mmol/L (3.5-5.1)
[2018-08-15 09:27] VITALS: BP 121/58
--- NOTE | 2018-08-15 10:56 | NUR ---
PRE-OPS GIVEN. TO VIBRATION TECHNICIAN BY BED.
[2018-08-15 11:10] VITALS: Ht 165.1 cm; Wt 68.6 kg
--- NOTE | 2018-08-15 12:14 | NUR ---
BACK FROM PRINT COLOR OPERATOR. VS WNL. RIGHT GROIN STABLE WITHOUT BLEEDING OR HEMATOMA NOTED. WILL MONITOR.
--- NOTE | 2018-08-15 16:02 | NUR ---
BED REST UP. GROIN STABLE.
--- NOTE | 2018-08-15 16:17 | NUR ---
IV AND TELEMETRY DCD. DC PLANS GIVEN. UNDERSTANDING VOICED. ESCORTED TO CAR BY W/C.
--- NOTE | 2018-08-16 09:43 | MORECARE ---
CASE MANAGEMENT DISCHARGE SUMMARY PATIENT: MARLENY FITZPATRICK UNIT: [id number] ADM DATE: 08/14/18 AGE: 77 : 42 SEX: F ROOM/BED: D.2114 AUTHOR: REJI CAMARILLO PHYSICIAN: REFERRING PHYSICIAN: NEO LONDON MD DATE OF SERVICE: 08/16/18 Discharge Plan Patient Name: MARLENY FITZPATRICK Facility: [facility]:[place] : 1940 Planned Disposition: Home Anticipated Discharge Date: 08/15/18 Discharge Date: 08/15/2018 Expected LOS: 1 Initial Reviewer: [email or web address] Initial Review Date: 08/16/2018 Generated: 08/16/18 10:43 am Patient Name: MARLENY FITZPATRICK Page 89520 at 0943 All edits/amendments must be made on the electronic document DICTATION DATE: 08/16/18942 RN INTERNAL MEDICINE: DM 08/16/18942 RPT#: [id number] DC DATE:08/15/18 STATUS: DIS IN [facility] [address] [place] [address] END OF REPORT
--- NOTE | 2018-08-20 12:22 | OP ---
PATIENT NAME: MARLENY FITZPATRICK MEDICAL RECORD: [id number] :44 LOCATION:D.M2 D.2114 ADMISSION DATE:08/14/18 SURGEON: WARD BHANDARI MD DATE OF OPERATION: 08/15/2018 PROCEDURE: Left heart catheterization, selective coronary angiography, right femoral artery approach. CATHETERS: A 5-[place]izen [place] sheath, 5/4 left and right Karthikeyan, 5/4 pig. The procedure was well tolerated. The patient was returned to the serna. Sheath was removed. ExoSeal device was placed. FINDINGS: Left ventriculography in 30-degree EMMANUEL view: Normal wall motion. Normal systolic function. CORONARY ANATOMY: LEFT MAIN: Left main is free of disease. LAD: LAD shows restenosis at the takeoff of a small diagonal branch. Distally, between 2 previously placed stents, there appears to be about 80% elongated stenosis. CIRCUMFLEX: OM stents are pretty widely patent. The terminal circumflex appears to be jailed with about 70% stenosis. RIGHT CORONARY ARTERY: Codominant system. No evidence of restenosis. PLAN: Intervention to LAD momentarily. DESCRIPTION: A 5-[place]izen [place] was exchanged for a 6-[place] sheath. XB LAD guiding catheter provided good guide catheter support. Then, we were able to place a Whisper wire down both lesions. Distal lesion was addressed with a 2.5 x 15 [place] drug-eluting stent. The proximal 90% stenosis was addressed with a 3.5 noncompliant balloon up to 14 atmospheres. This showed nice resolution of restenosis, but with snowplowing to the small diagonal with some chest pain. IMPRESSION: Successful BINDERY MACHINE TENDER and stenting of the LAD, snowplowing to the diagonal. The patient was previously on Plavix. Heparin was used. Sheath was closed with ExoSeal device. TRANSINT:[id number] Voice Confirmation ID: [id number] DOCUMENT ID: [id number] WADR BHANDARI MD at 1222 CC: [id number] DICTATION DATE: 08/15/[address] ROLLER ENGINEER: 08/15/18 1638 DIS IN 08/15/18 [facility] [address] [place] [address]
--- NOTE | 2018-08-20 12:22 | CN ---
PATIENT NAME:MARLENY FITZPATRICK MEDICAL RECORD: [id number] : 44 LOCATION:D.[place] D.2114 ADMIT DATE: 08/14/18 ACCOUNT: [id number] CONSULTING PHYSICIAN: WARD BHANDARI MD REFERRING PHYSICIAN: NEO LONDON MD DATE OF CONSULTATION: 08/15/2018 HISTORY: A 77-year-old lady with history of coronary artery disease. She has history of hypertension; hyperlipidemia; recently diagnosed atrial fibrillation, started on sotalol, however, unable to tolerate this and stopped at that point in time. She had an episode of chest tightness and pressure on walking up approximately 10 stairs. Most recent intervention in June, did have elevation in her troponin up to 0.676, consistent with small NSTEMI. We are asked to see her concerning cardiac status. PAST MEDICAL HISTORY: Includes; 1. History of hypertension. 2. Hyperlipidemia. 3. Coronary artery disease described above. 4. Paroxysmal atrial fibrillation. ALLERGIES: INCLUDE HYDROCODONE, BENADRYL, KEFLEX, AND LASIX. SOCIAL HISTORY: Nonsmoker and nondrinker. She takes all of her ADLs. She does try to exercise on a regular basis. MEDICATIONS: Include Plavix 75 daily, Imdur 5 daily, lisinopril 40 b.i.d., Librium 10 b.i.d. p.r.n., and Synthroid 88 mcg daily. REVIEW OF SYSTEMS: The patient reports easy bruising but reports no swollen glands. The patient reports no fever, no night sweats, no significant weight gain, no significant weight loss. No significant exercise tolerance. The patient reports no dry eyes, no irritation, no vision change. Patient reports no difficulty hearing and no ear pain. Patient reports no frequent nose bleeds or nose and sinus problems. Patient reports on arm pain on exertion. No shortness of breath while lying down. No history of heart murmur. Patient reports no cough, no wheezing or coughing up blood. Patient reports no abdominal pain, no vomiting. Normal appetite. No diarrhea and not vomiting blood. No nausea and no constipation. Patient reports no incontinence. No difficulty urinating. No hematuria. No increased frequency. Patient reports no muscle aches. No weakness, no arthralgias, no back pain. No swelling of the extremities. Patient reports no abnormal mole, no jaundice, no rashes. Reports no loss of consciousness. No weakness and no numbness. No seizures, dizziness, or headaches. The patient reports no depression, no sleep disturbance, feeling safe in a relationship and no alcohol abuse. Patient reports on fatigue. Reports no runny nose or sinus pressure. No itching, no hives, and no frequent sneezing. PHYSICAL EXAMINATION: GENERAL: Pleasant female, in no acute distress, appears stated age. VITAL SIGNS: Blood pressure 121/58. Pulse 66 and regular. HEENT: Normocephalic and atraumatic. NECK: No bruits are noted. HEART: Regular. LUNGS: Good air excursion. CONSULT REPORT [id number] MARLENY FITZPATRICK ABDOMEN: Soft and nontender. EXTREMITIES: Pulses 2+. No edema. DIAGNOSTIC DATA: ECG shows no significant ST changes inferolaterally. IMPRESSION: NSTEMI. Most recent intervention in June of 2018. PLAN: Plan for angiography and intervention based on above. TRANSINT:[id number] Voice Confirmation ID: [id number] DOCUMENT ID: [id number] WARD BHANDARI MD at 1222 CC: [id number] DICTATION DATE: 08/15/18 1008 CRUSHER AND BLENDER OPERATOR: 08/15/18 1401 DIS IN 08/15/18 [facility] [address] [place] [address]
== END 2018-08-15 16:18 | disposition home or self-care (01) ==
LOC: D.ER 15:34 → D.EDHOLD 17:19 → OBSVTIME 17:19 → D.M2 17:56
PROVIDERS: Family Medicine; Internal Medicine Interventional Cardiology; ADMIT Internal Medicine Nephrology
DX: I25.110 Atherosclerotic heart disease of native coronary artery with unstable angina pectoris (principal); Z95.5 Presence of coronary angioplasty implant and graft; I10 Essential (primary) hypertension; E78.5 Hyperlipidemia, unspecified; E11.9 Type 2 diabetes mellitus without complications; I48.91 Unspecified atrial fibrillation; E03.9 Hypothyroidism, unspecified; F41.9 Anxiety disorder, unspecified
CPT/HCPCS: 93458; C9600

== ENCOUNTER 2018-10-04 20:43 | Outpatient (CLI) | payer MEDICARE ==
[~2018-10-04] VITALS: Ht 165.1 cm; Wt 72.7 kg
--- NOTE | ~2018-10-04 | HEMODYNAMI ---
PATIENT:MARLENY FITZPATRICK MEDICAL RECORD: [id number] : 44 [facility] [facility] [id number] ADMISSION DATE: 10/04/18 Generatedon:10/06/20188:34 Patient name: MARLENY FITZPATRICK Patient #: [id number] : 1940 Date of study: 10/06/2018 Page: Of Hemodynamic Procedure Report Patient Data Patient Demographics Procedure consent was obtained First Name: MARLENY Gender: Female Last Name: NANETTE : 1940 [facility] Initial: SHOLA Age: 77 year(s) Patient #: [id number] Race: SSN: [id number] Additional ID: [id number] Contact details Address: [address] [place] [address] State: [place] City: [place] Zip code: [address] Past Medical History Allergies Allergen Reaction Date Comments Reported Other allergy 08/15/2018 Cephlexin, Hydrocodone, adhesive, IV Benadryl Natural rubber 08/15/2018 and latex Other allergy 10/05/2018 METFORMIN, HYDROCODONE, LATEX, BENADRYL Admission Admission Data Admission Date: 10/04/2018 Admission Time: 20:43 [facility] Weight (lbs.): 160.94 Weight (kg.): 73 Lab Results Lab Result Date: 10/05/2018 Lab Result Time: 0:00 Biochemistry Name Units Result Min Max BUN mg/dl 9 --(*---)-- 7 18 Creatinine mg/dl 0.9 --(-*--)-- 0.6 1.3 CBC Name Units Result Min Max Hematocrit % 43.2 --(*---)-- 42 54 Hemoglobin g/dl 14.6 --(-*--)-- 13.5 17.5 Procedure Procedure Types Cath Procedure PCI Procedure Coronary Stent Coronary Stent Initial Procedure Description Procedure Date Procedure Date: 10/06/2018 Procedure Start Time: 8:18 Procedure End Time: 8:28 Procedure Staff Name Function John Mueller MD Performing Physician Bing Rodrigues RN Nurse Tana Stone RN Frothing Machine Operator Wilder Roberson RT Monitor Denys Kerns RT Scrub Procedure Data Cath Procedure Fluoroscopy Diagnostic fluoroscopy Total fluoroscopy Time: 1.7 time: 1.7 min min Diagnostic fluoroscopy Total fluoroscopy dose: 209 dose: 209 mGy mGy Contrast Material Contrast Material Type Amount (ml) Isovue 300 46 Entry Location Entry Primary Successful Side Size Upsize Upsize Entry Closure Succes sful Closure Location (Fr) 1 (Fr) 2 (Fr) Remarks Device Remarks Femoral Left 6 Fr Exoseal artery Short Estimated blood loss: 10 ml Procedure Complications No complications Procedure Medications Medication Administration Route Dosage 0.9% NaCl I.V. 100 ml/hr Oxygen etCO2 Nasal cannula 2 l/min Lidocaine 2% added to field 20 Heparin Flush Bag added to field 2 bags (1000units/500ml NS) Versed I.V. 2 mg Fentanyl I.V. 50 mcg Versed I.V. 2 mg Fentanyl I.V. 50 mcg Heparin Bolus I.V. 4000 units Hemodynamics Rest HGB: 14.6 (g/dl) Heart Rate: 81 (bpm) Snapshots Pre Cath Intra NCS Post Cath Vital Signs Time Heart Resp SPO2 etCO2 NIBP (mmHg) Rhythm Pain Sedation Rate (ipm) (%) (mmHg) Status Level (bpm) 7:53:59 79 18 99 34.9 122/67(103) NSR 0 (11) 10(A) , No pain 7:58:17 79 17 96 23 105/62(90) NSR 0 (11) 10(A) , No pain 8:02:25 78 13 96 22.7 110/61(90) NSR 0 (11) 10(A) , No pain 8:06:39 79 13 96 24 106/56(88) NSR 0 (11) 10(A) , No pain 8:10:51 84 12 98 26 115/62(90) NSR 0 (11) 10(A) , No pain 8:15:05 85 10 98 40.2 111/59(85) NSR 0 (11) 10(A) , No pain 8:19:17 89 13 95 48.5 120/66(99) NSR 0 (11) 10(A) , No pain 8:23:28 91 16 96 45.5 138/74(110) NSR 0 (11) 9(A) , No pain 8:27:45 97 19 97 41.7 146/75(117) NSR 0 (11) 10(A) , No pain Medications Time Medication Route Dose Verified Delivered Reason Notes Effectiveness by by 7:53:28 0.9% NaCl I.V. 100 Buffie Bing used for ml/hr Bertha Rodrigues lead caster 7:53:34 Oxygen etCO2 2 Buffie Bing used for Nasal l/min Bertha Rodrigues procedure cannula RN 7:53:40 Lidocaine 2% added 20ml John John for local to vial Ervin Mueller MD anesthetic field 7:53:47 Heparin Flush added 2 John John used for Bag to bags Ervin Mueller MD procedure (1000units/500ml field NS) 8:15:32 Versed I.V. 2 mg John Bing for sedation Ervin Rodrigues RN 8:15:39 Fentanyl I.V. 50 John Bing for sedation mcg Ervin Rodrigues RN 8:21:52 Versed I.V. 2 mg John Bing for sedation Ervin Rodrigues RN 8:21:56 Fentanyl I.V. 50 John Bing for sedation mcg Ervin Rodrigues RN 8:22:10 Heparin Bolus I.V. 4000 John Bing for verifi ed units Ervin Rodrigues anticoagulation with Dr. ADRIEL Mueller Procedure Log Time Note 7:35:10 Tana Stone RN sent for patient. Start room use. 7:45:11 Time tracking: Regular hours (M-F 7:00 - 5:00) 7:45:16 Plan of Care:Hemodynamics will remain stable., Cardiac rhythm will remain stable., Comfort level will be maintained., Respiratory function will remain adequate., Patient/ family verbilizes understanding of procedure., Procedure tolerated without complication., Recovers from procedure without complications.. 7:45:34 Patient received from PCU to CCL 1 Alert and oriented. Tansferred to table in Supine position. 7:45:38 Warm blankets applied, and yessica hugger turned on for patient comfort. 7:45:39 Correct patient and procedure confirmed by team. 7:45:41 Signed procedure consent form obtained from patient. 7:45:42 ECG and BP/O2 sat monitors applied to patient. 7:47:50 Patient Weight : 160.94 lbs 7:52:49 Vital chart was started 7:53:28 0.9% NaCl 100 ml/hr I.V. was administered by Bing Rodrigues RN; used for procedure; 7:53:34 Oxygen 2 l/min etCO2 Nasal cannula was administered by Bnig Rodrigues RN; used for procedure; 7:53:40 Lidocaine 2% 20ml vial added to field was administered by John Mueller MD; for local anesthetic; 7:53:47 Heparin Flush Bag (1000units/500ml NS) 2 bags added to field was administered by John Mueller MD; used for procedure; 7:58:31 Baseline sample Acquired. 7:58:33 Rhythm: sinus rhythm 7:58:34 Full Disclosure recording started 7:58:43 H&P Date Dictated: 10/05/2018 Within 30 days and on chart.. 7:58:44 Pre-procedure instructions explained to patient. 7:58:44 Pre-op teaching completed and patient verbalized understanding. 7:58:47 Family in patients room. 7:58:49 Patient NPO since Midnight. 7:58:50 Is the patient allergic to Iodine/contrast media? No. 7:58:52 Is patient on blood thinner?Yes 7:58:56 ACC The patient was administered the following blood thiners within the last 24 hours: ACCPlavix 7:59:07 Patient diabetic? Yes. 7:59:08 If diabetic: On Metformin? No 7:59:11 Previous problem with sedation/anesthesia? No ? 7:59:16 Snore? Yes 7:59:17 Sleep apnea? Yes 7:59:18 Deviated septum? No 7:59:19 Opens mouth fully? Yes 7:59:20 Sticks out tongue? Yes 7:59:22 Airway obstruction? No ? 7:59:24 Dentures? No ? 7:59:30 Pre procedure: right dorsailis pedis pulse 1+ Palpable, but thready & weak; easily obliterated 7:59:33 Patient pain scale 0/10 ?. 7:59:39 IV patent on arrival in left forearm with 0.9% NaCl at [facility]. 7:59:41 Lab results completed and on chart. 8:00:15 Left groin area was prepped with chlora-prep and draped in sterile fashion 8:00:21 Alarms reviewed by R. N. 8:00:21 Sharps counted by scrub and verified by R.N. 8:00:35 Use device set Radial Dx or PCI 8:00:38 Use device set TAUTH PCI 8:00:53 Physician paged 8:00:58 Tegaderm 4 x 4 (1626W) opened to sterile field. 8:00:59 ACIST Manifold (38990) opened to sterile field. 8:00:59 ACIST Hand Control (13242) opened to sterile field. 8:01:01 ACIST Syringe (17501) opened to sterile field. 8:01:01 Medline Cath Pack ([id number]) opened to sterile field. 8:01:02 Bag Decanter (2002S) opened to sterile field. 8:01:02 DIAGNOSTIC WIRE .035 260cm J wire (556908) opened to sterile field. 8:01:08 INFLATOR Merit BasixCompak (NY9803) opened to sterile field. 8:01:12 SHEATH 6FR Cream Ridge (NFD653) opened to sterile field. 8:01:15 CHOICE PT Extra Support 182cm wire ([id number]) opened to sterile field. 8:01:35 IV Extension Set opened to sterile field. 8:14:52 --------ALL STOP TIME OUT------ 8:14:53 Final Timeout: patient, procedure, and site verified with staff and physician. All members of the team are in agreement. 8:14:55 Left groin site verified by team. 8:14:58 Maximum allowable Isovue 300 dose 300ml. Physician notified. (300ml for normal creatinines. For patients with creatinine of 1.7 or higher multiply weight(kg) x 5 divided by creatinine.) 8:15:09 Fire Safety Assessment: A--An alcohol-based skin anteseptic being used preoperatively., C--Open oxygen or nitrous oxide is being used., D--An ESU, laser, or fiber-optic light is being used. 8:15:13 Physical assessment completed. ASA score P 2 - A patient with mild systemic disease as per John Mueller MD. 8:15:16 Sedation plan: IV Moderate Sedation Medication:Versed, Fentanyl 8:15:32 Versed 2 mg I.V. was administered by Bing Rodrigues RN; for sedation; 8:15:39 Fentanyl 50 mcg I.V. was administered by Bing Rodrigues RN; for sedation; 8:16:17 GUIDE 6FR HS I SH catheter ([id number]) opened to sterile field. 8:18:27 Procedure started. 8:18:30 Local anesthetic to left femerol artery with Lidocaine 2% by John Mueller MD.INITIAL ACCESS ONLY 8:19:06 A 6 Fr Short sheath was inserted into the Left Femoral artery 8:19:23 6 Fr HS 1 SH guide catheter was inserted over the wire 8:21:06 CPTXS wire advanced. 8:21:12 Wire advanced across lesion. 8:21:52 Versed 2 mg I.V. was administered by Bing Rodrigues RN; for sedation; 8:21:56 Fentanyl 50 mcg I.V. was administered by Bing Rodrigues RN; for sedation; 8:22:10 Heparin Bolus 4000 units I.V. was administered by Bing Rodrigues RN; for anticoagulation; verified with Dr. Mueller 8:23:10 Place stent Inflation Number: 1 A RADHA RX 2.0 x 30 stent ([id number]) was prepped and advanced across the Dist RCA. The stent was deployed at 11 IRENE for 0:10 (min:sec). 8:23:39 Stent catheter was removed intact over wire. 8:23:40 Wire removed. 8:23:40 Guide catheter removed. 8:23:44 EXOSEAL 6Fr (EX600) opened to sterile field. 8:24:19 Sheath removed intact; hemostasis achieved with Exoseal to the Left Femoral artery. 8:24:21 Procedure ended.(Physican Out) 8:27:19 Fluoroscopy time 01.70 minutes. 8::22 Fluoroscopy dose: 209 mGy 8:: Flurop Dose total: 209 8:27:28 Contrast amount:Isovue 300 46ml. 8:27:30 Sharps counted by scrub and verified by R.N. 8:27:31 Insertion/operative site no bleeding no hematoma. 8:27:34 Post-op/insertion site Left Femoral artery dressed using a 4 x 4 and Tegaderm. 8:27:36 Post Procedure Pulses reassessed and unchanged 8:27:38 Post-procedure physical assessment completed. ASA score P 2 - A patient with mild systemic disease as per John Mueller MD. 8:27:40 Post procedure rhythm: unchanged. 8:27:46 Estimated blood loss: 10 ml 8:27:47 Post procedure instruction explained to patient.Patient verbalizes understanding. 8:27:48 Patient needs reinforcement of post procedure teaching. 8:27:56 Procedure type changed to Cath procedure, PCI procedure, Coronary Stent, Coronary Stent Initial 8:27:58 Procedure and supply charges have been captured, reviewed, submitted and are correct. 8:28:01 Procedure Complication : No complications 8:28:19 Vital chart was stopped 8:28:20 See physician's report for complete and final results. 8:28:22 Report given to PCU. 8:28:24 Patient transfered to PCU with Bed. 8:28:26 Procedure ended. 8:28:26 Full Disclosure recording stopped 8:32:59 End room use (Document Last) Intervention Summary Intervention Notes Time ActionType Lesion and Equipment Used Action# Pressure Duration Attributes 8:23:10 Place stent Dist RCA RADHA RX 2.0 x 1 11 00:10 30 stent ([id number]) Device Usage Item Name Manufacture Quantity Catalog Number Hospital Part Current M inimal Lot# / Charge Number Stock Stock Serial# Code Tegaderm 4 x 4 3M 1 [id number] [id number] 177408 5 (1626W) ACIST Manifold Acist 1 83450 757740 140136 631699 5 (46327) Medical Systems Inc ACIST Hand Acist 1 33996 101616 345849 903334 5 Control Medical (77472) Systems Inc ACIST Syringe Acist 1 36048 588696 989544 859420 2 0 (69015) Medical Systems Inc Medline Cath Medline 1 [id number] 209782 31826 951366 5 Pack ([id number]) Bag Decanter Microtek 1 990630 32350 318198 5 () Medical Inc. DIAGNOSTIC St Jamar 1 829295 560203 801674 015754 3 0 WIRE .035 260cm J wire (263679) INFLATOR Merit Merit 1 OM7084 675464 126311 378341 1 5 BasixCompak Medical (YT0574) SHEATH 6FR Terumo 1 RBO438 166268 688142 083763 4 0 Cream Ridge (HQO321) CHOICE PT [place] 1 [id number] 661635 389921 067498 5 Extra Support Scientific 182cm wire ([id number]) IV Extension Hospira 1 44052-95 610544 26053 192923 5 Set GUIDE 6FR HS I Medtronic 1 [id number] 221475 44713 282425 1 SH catheter ([id number]) RADHA RX 2.0 x Medtronic 1 [id number] 537975 2499057 252892 5 [id number] 30 stent ([id number]) EXOSEAL 6Fr Cardinal 1 EX600 094438 751864 623364 1 0 (EX600) Health Signature Audit [place] Stage Time Signature Unsigned Intra-Procedure 10/06/2018 Wilder Roberson 8:34:27 AM RT(R) Signatures Monitor : Wilder Roberson RT Signature : Date : Time : [address] [id number] [facility] [place] [address]
--- NOTE | ~2018-10-04 | HEMODYNAMI ---
PATIENT:MARLENY FITZPATRICK MEDICAL RECORD: [id number] : 44 LOCATION:D.CAT ADMISSION DATE: 10/04/18 Generatedon:10/05/20189:32 Patient name: MARLENY FITZPATRICK Patient #: [id number] : 1940 Date of study: 10/05/2018 Page: Of Hemodynamic Procedure Report Patient Data Patient Demographics Procedure consent was obtained First Name: MARLENY Gender: Female Last Name: NANETTE : 1940 [facility] Initial: SHOLA Age: 77 year(s) Patient #: [id number] Race: SSN: [id number] Additional ID: [id number] Contact details Address: [address] [address] State: [place] City: [place] Zip code: [address] Past Medical History Allergies Allergen Reaction Date Comments Reported Other allergy 08/15/2018 Cephlexin, Hydrocodone, adhesive, IV Benadryl Natural rubber 08/15/2018 and latex Other allergy 10/05/2018 METFORMIN, HYDROCODONE, LATEX, BENADRYL Admission Admission Data Admission Date: 10/04/2018 Admission Time: 20:43 Room #: D.E02 Lab Results Lab Result Date: 10/05/2018 Lab Result Time: 0:00 Biochemistry Name Units Result Min Max BUN mg/dl 9 --(*---)-- 7 18 Creatinine mg/dl 0.9 --(-*--)-- 0.6 1.3 CBC Name Units Result Min Max Hematocrit % 43.2 --(*---)-- 42 54 Hemoglobin g/dl 14.6 --(-*--)-- 13.5 17.5 Procedure Procedure Types Cath Procedure Diagnostic Procedure LHC LH w/Coronaries Sedation Charges Moderate Sedation up to 15 minutes PCI Procedure Coronary Stent Coronary Stent Initial Coronary Atherectomy Atherectomy w/Stent Coronary Initial Procedure Description Procedure Date Procedure Date: 10/05/2018 Procedure Start Time: 9:09 Procedure End Time: 9:32 Procedure Staff Name Function John Mueller MD Performing Physician Jody Borja RT Monitor Ankit Faust RN Nurse Ruth Richards RT Scrub Procedure Data Cath Procedure Fluoroscopy Diagnostic fluoroscopy Total fluoroscopy Time: 5.4 time: 5.4 min min Diagnostic fluoroscopy Total fluoroscopy dose: 966 dose: 966 mGy mGy Contrast Material Contrast Material Type Amount (ml) Isovue 300 102 Entry Location Entry Primary Successful Side Size Upsize Upsize Entry Closure Succes sful Closure Location (Fr) 1 (Fr) 2 (Fr) Remarks Device Remarks Femoral Right 5 Fr 6 Fr Exoseal artery Short Estimated blood loss: 10 ml Diagnostic catheters Device Type Used For End Catheter Placement MULTIPACK Pigtail 5 Fr LV Angiography catheter MULTIPACK JL 4.0 5Fr Left Coronary catheter Angiography MULTIPACK 3DRC 5Fr Right Coronary catheter Angiography Procedure Complications No complications Procedure Medications Medication Administration Route Dosage 0.9% NaCl I.V. 100 ml/hr Oxygen etCO2 Nasal cannula 2 l/min Heparin Flush Bag added to field 2 bags (1000units/500ml NS) Lidocaine 2% added to field 20 Versed 1 mg Fentanyl I.V. 50 mcg Heparin Bolus I.V. 4000 units Integrilin (Bolus I.V. 6.8 ml 2mg/ml) Integrilin (Bolus wasted 3.2 ml 2mg/ml) Cardizem 10 mg/hr (125mg/125ml NS) Cardizem 10 mg/hr (125mg/125ml NS) Plavix P.O. 600 mg Hemodynamics Rest HGB: 14.6 (g/dl) Heart Rate: 65 (bpm) Snapshots Pre Cath Intra NCS Post Cath Vital Signs Time Heart Resp SPO2 etCO2 NIBP Rhythm Pain Sedation Rate (ipm) (%) (mmHg) (mmHg) Status Level (bpm) 8:47:39 66 11 94 0 109/59(85) NSR 0 (11) 10(A) , No pain 8:51:49 66 16 94 34.9 105/57(82) NSR 0 (11) 10(A) , No pain 8:55:57 66 14 94 32.6 101/55(79) NSR 0 (11) 10(A) , No pain 9:00:02 67 17 91 27.3 102/59(84) NSR 0 (11) 10(A) , No pain 9:04:08 68 19 92 19.7 106/61(82) NSR 0 (11) 10(A) , No pain 9:08:12 70 19 92 31.1 115/68(92) NSR 0 (11) 10(A) , No pain 9:12:22 73 17 94 37.9 105/57(85) NSR 0 (11) 10(A) , No pain 9:16:28 74 20 94 37.2 110/63(87) NSR 0 (11) 9(A) , No pain 9:20:33 77 30 93 38 115/66(88) NSR 0 (11) 9(A) , No pain 9:24:43 78 18 93 36.4 114/61(89) NSR 0 (11) 9(A) , No pain 9:28:51 77 22 92 37.2 129/65(95) NSR 0 (11) 10(A) , No pain Medications Time Medication Route Dose Verified Delivered Reason Notes Effectiveness by by 8:57:27 Cardizem I.V. 10 Ankit Ankit for arrhythmia (125mg/125ml NS) drip(infusing mg/hr Christianne Faust upon arrival) RN RN 8:57:32 0.9% NaCl I.V. 100 Ankit Ankit Per physician ml/hr Christianne Faust RN RN 8:57:43 Oxygen etCO2 Nasal 2 Ankit Ankit for low 02 sats cannula l/min Christianne Faust RN RN 8:57:55 Heparin Flush added to 2 Ankit Ankit used for Bag field bags Christianne Faust procedure (1000units/500ml RN RN NS) 8:58:06 Lidocaine 2% added to 20ml Ankit Ankit for local field vial Christianne Faust anesthetic RN RN 9:08:16 Versed 1 mg Ankit Ankit for sedation Christianne Faust RN RN 9:08:25 Fentanyl I.V. 50 Ankit Ankit for sedation mcg Christianne Faust RN RN 9:18:02 Heparin Bolus I.V. 4000 Ankit Ankit for units Christianne Faust anticoagulation RN RN 9:19:30 Integrilin I.V. 6.8 Ankit Ankit for (Bolus 2mg/ml) ml Christianne Faust antiplatelet RN RN therapy 9:21:42 Integrilin wasted 3.2 Ankit Ankit to sharp's (Bolus 2mg/ml) ml Christianne Faust RN RN 9:24:45 Cardizem turned off 10 Ankit Ankit for arrhythmia (125mg/125ml NS) mg/hr Christianne Faust RN RN 9:31:16 Plavix P.O. 600 Ankit Ankit for mg Christianne Faust antiplatelet RN RN therapy Procedure Log Time Note 8:32:02 Time tracking: Regular hours (M-F 7:00 - 5:00) 8:32:06 Plan of Care:Hemodynamics will remain stable., Cardiac rhythm will remain stable., Comfort level will be maintained., Respiratory function will remain adequate., Patient/ family verbilizes understanding of procedure., Procedure tolerated without complication., Recovers from procedure without complications.. 8:33:31 Jody Counts RT(R) sent for patient. Start room use. 8:42:52 Patient received from ED to CCL 2 Alert and oriented. Tansferred to table in Supine position. 8:42:53 Warm blankets applied, and yessica hugger turned on for patient comfort. 8:42:54 Correct patient and procedure confirmed by team. 8:42:56 Signed procedure consent form obtained from patient. 8:42:57 ECG and BP/O2 sat monitors applied to patient. 8:42:58 Pre-procedure instructions explained to patient. 8:42:59 Pre-op teaching completed and patient verbalized understanding. 8:43:16 H&P Date Dictated: 10/04/2018 Within 30 days and on chart.. 8:44:26 Previous problem with sedation/anesthesia? No ? 8:44:27 Snore? Yes 8:44:28 Sleep apnea? Yes 8:44:29 Deviated septum? No 8:44:30 Opens mouth fully? Yes 8:44:31 Sticks out tongue? Yes 8:44:33 Airway obstruction? No ? 8:44:36 Dentures? No ? 8:44:38 Is patient on blood thinner?Yes 8:44:52 ACC The patient was administered the following blood thiners within the last 24 hours: ACCPlavix 8:44:53 Patient diabetic? Yes. 8:44:55 If diabetic: On Metformin? No 8:45:36 Patient allergic to Other allergyMETFORMIN, HYDROCODONE, LATEX, BENADRYL 8:45:39 Family in waiting room. 8:46:26 Lab Result : Creatinine 0.9 mg/dl 8:46:26 Lab Result : BUN 9 mg/dl 8:46:26 Lab Result : Hemoglobin 14.6 g/dl 8:46:26 Lab Result : Hematocrit 43.2 % 8:46:31 Lab results completed and on chart. 8:46:36 Vital chart was started 8:46:52 Rhythm: sinus rhythm 8:46:54 Full Disclosure recording started 8:47:31 Use device set Femoral Dx 8:47:32 ACIST Syringe (77888) opened to sterile field. 8:47:32 Bag Decanter (2002S) opened to sterile field. 8:47:33 ACIST Hand Control (71692) opened to sterile field. 8:47:34 ACIST Manifold (15127) opened to sterile field. 8:47:35 Tegaderm 4 x 4 (1626W) opened to sterile field. 8:47:36 Medline Cath Pack ([id number]) opened to sterile field. 8:47:36 DIAGNOSTIC WIRE .035 260cm J wire (726048) opened to sterile field. 8:47:37 DIAGNOSTIC Multipack 5Fr catheter set (BA7324) opened to sterile field. 8:47:38 SHEATH 5FR [place] (DHN042) opened to sterile field. 8:51:19 Pre procedure: right dorsailis pedis pulse 2+ Normal; easily identifiable; not easily obliterated 8:51:23 Patient pain scale 0/10 ?. 8:51:33 IV patent on arrival in left antecubital with 0.9% NaCl at [facility]. 8:51:37 Right groin area was prepped with chlora-prep and draped in sterile fashion 8:51:39 Alarms reviewed by R. N. 8:51:39 Sharps counted by scrub and verified by R.N. 8:51:55 Baseline sample Acquired. 8:57:27 Cardizem (125mg/125ml NS) 10 mg/hr I.V. drip(infusing upon arrival) was administered by Ankit Faust RN; for arrhythmia; 8:57:32 0.9% NaCl 100 ml/hr I.V. was administered by Ankit Lorigan RN; Per physician; 8:57:43 Oxygen 2 l/min etCO2 Nasal cannula was administered by Ankit Faust RN; for low 02 sats; 8:57:55 Heparin Flush Bag (1000units/500ml NS) 2 bags added to field was administered by Ankit Faust RN; used for procedure; 8:58:06 Lidocaine 2% 20ml vial added to field was administered by Ankit Faust RN; for local anesthetic; 8:59:04 Physician paged 9:06:57 Final Timeout: patient, procedure, and site verified with staff and physician. All members of the team are in agreement. 9:07:00 Right groin site verified by team. 9:07:02 Maximum allowable Isovue 300 dose 300ml. Physician notified. (300ml for normal creatinines. For patients with creatinine of 1.7 or higher multiply weight(kg) x 5 divided by creatinine.) 9:07:06 Fire Safety Assessment: A--An alcohol-based skin anteseptic being used preoperatively., C--Open oxygen or nitrous oxide is being used., D--An ESU, laser, or fiber-optic light is being used. 9:07:09 Physical assessment completed. ASA score P 2 - A patient with mild systemic disease as per John Mueller MD. 9:07:12 Sedation plan: IV Moderate Sedation Medication:Versed, Fentanyl 9:08:16 Versed 1 mg was administered by Ankit Faust RN; for sedation; 9:08:25 Fentanyl 50 mcg I.V. was administered by Ankit Faust RN; for sedation; 9::25 Procedure started. 9:09:28 Local anesthetic to right femoral artery with Lidocaine 2% by John Mueller MD.INITIAL ACCESS ONLY 9:09:58 A 5 Fr sheath was inserted into the Right Femoral artery 9:10:51 A MULTIPACK Pigtail 5 Fr catheter was advanced over the wire and used for LV Angiography. 9:11:00 LV gram done using EMMANUEL 9:11:04 EF : 60 % 9::06 Injector settings: Ml/sec: 10, Volume: 20, 9:11:07 Catheter removed. 9:11:22 A MULTIPACK JL 4.0 5Fr catheter was advanced over the wire and used for Left Coronary Angiography. 9:12:17 Catheter removed. 9:12:29 A MULTIPACK 3DRC 5Fr catheter was advanced over the wire and used for Right Coronary Angiography. 9:12:33 Use device set TAU PCI 9:12:34 SHEATH 6FR [place] (CJC560) opened to sterile field. 9:12:38 INFLATOR Merit BasixCompak (YE2436) opened to sterile field. 9:12:45 CHOICE PT Extra Support 182cm wire ([id number]) opened to sterile field. 9:12:48 GUIDE 6FR XBLAD 3.5 catheter ([id number]) opened to sterile field. 9:13:00 Catheter removed. 9:13:17 Sheath upsized to a 6 Fr Short. 9:16:01 6 Fr XBLAD 3.5 guide catheter was inserted over the wire 9:16:14 LASER ELCA 0.9 Rx atherectomy catheter (854004) opened to sterile field. 9:17:02 CHOICE PT ES wire advanced. 9:18:02 Heparin Bolus 4000 units I.V. was administered by Ankit Faust RN; for anticoagulation; 9:19:30 Integrilin (Bolus 2mg/ml) 6.8 ml I.V. was administered by Ankit Faust RN; for antiplatelet therapy; 9:20:39 Place stent Inflation Number: 1 A RADHA RX 3.5 x 15 stent ([id number]) was prepped and advanced across the Mid CX. The stent was deployed at 17 IRENE for 0:06 (min:sec). 9:20:59 Wire redirected to LAD. 9:21:16 Stent catheter was removed intact over wire. 9:21:42 Integrilin (Bolus 2mg/ml) 3.2 ml wasted was administered by Ankit Faust RN; to sharp's; 9:22:56 Inflate balloon Inflation number: 1 A EUPHORA 3.0 x 15 Balloon ([id number]) was prepped and advanced across the Prox LAD, then inflated to 15 IRENE for 0:04 (min:sec). 9:23:08 Inflation number: 2 The EUPHORA 3.0 x 15 Balloon ([id number]) was reinflated across the Prox LAD, to 17 IRENE for 0:04 (min:sec). 9:23:24 Balloon removed over the wire. 9:24:36 Laser pass to pLAD with Fluence of 80 and Rate of 80. 9:24:45 Cardizem (125mg/125ml NS) 10 mg/hr turned off was administered by Ankit Faust RN; for arrhythmia; 9:25:12 Laser pass to pLAD with Fluence of 80 and Rate of 80. 9:25:22 Laser pass to pLAD with Fluence of 80 and Rate of 80. 9:25:56 Laser catheter removed. 9:27:26 Place stent Inflation Number: 3 A RADHA RX 3.0 x 26 stent ([id number]) was prepped and advanced across the Prox LAD. The stent was deployed at 13 IRENE for 0:10 (min:sec). 9::58 Stent catheter was removed intact over wire. 9::59 Wire removed. 9::59 Guide catheter removed. 9:28:09 Sheath removed intact; hemostasis achieved with Exoseal to the Right Femoral artery. 9:28:11 Procedure ended.(Physican Out) 9:28:21 Fluoroscopy time 05.40 minutes. 9:28:24 Flurop Dose total: 966 9:28:24 Fluoroscopy dose: 966 mGy 9:28:29 Contrast amount:Isovue 300 102ml. 9:28:31 Sharps counted by scrub and verified by R.N. 9:28:33 EXOSEAL 6Fr (EX600) opened to sterile field. 9:28:36 Insertion/operative site no bleeding no hematoma. 9:28:39 Post-op/insertion site Right Femoral artery dressed using a 4 x 4 and Tegaderm. 9::42 Post right femoral artery:stable, clean and dry 9:29:26 Post Procedure Pulses reassessed and unchanged 9:29:28 Post-procedure physical assessment completed. ASA score P 2 - A patient with mild systemic disease as per John Mueller MD. 9:29:33 Post procedure rhythm: unchanged. 9:29:38 Estimated blood loss: 10 ml 9::42 Post procedure instruction explained to patient.Patient verbalizes understanding. 9:29:42 Patient needs reinforcement of post procedure teaching. 9:30:14 Procedure type changed to Cath procedure, Diagnostic procedure, LHC, LHC w/Coronaries, Sedation Charges, Moderate Sedation up to 15 minutes, PCI procedure, Coronary Stent, Coronary Stent Initial, Coronary Atherectomy, Atherectomy w/Stent Coronary Initial 9:30:16 Procedure and supply charges have been captured, reviewed, submitted and are correct. 9:30:20 Procedure Complication : No complications 9:30:22 See physician's report for complete and final results. 9:31:16 Plavix 600 mg P.O. was administered by Ankit Faust RN; for antiplatelet therapy; 9:31:59 Vital chart was stopped 9:32:01 Report given to Pre/Post Procedure Room. 9:32:04 Patient transfered to Pre/Post Procedure Room with Stretcher. 9:32:10 Procedure ended. 9:32:10 Full Disclosure recording stopped 9:32:15 End room use (Document Last) Intervention Summary Intervention Notes Time ActionType Lesion and Equipment Used Action# Pressure Duration Attributes 9:20:39 Place stent Mid CX RADHA RX 3.5 x 1 17 00:07 15 stent ([id number]) 9:22:56 Inflate Prox LAD EUPHORA 3.0 x 1 15 00:04 balloon 15 Balloon ([id number]) 9:23:08 Reinflate Prox LAD EUPHORA 3.0 x 2 17 00:04 balloon 15 Balloon ([id number]) 9:27:26 Place stent Prox LAD RADHA RX 3.0 x 3 13 00:10 26 stent ([id number]) Device Usage Item Name Manufacture Quantity Catalog Number Hospital Part Current M inimal Lot# / Charge Number Stock Stock Serial# Code ACIST Syringe Acist 1 73633 421280 860250 219468 2 0 (02329) Medical Systems Inc Bag Decanter Microtek 1 2001S 974245 14645 037114 5 () Medical Inc. ACIST Hand Acist 1 49766 812919 586739 211264 5 Control Medical (42200) Systems Inc ACIST Manifold Acist 1 25111 338804 257833 428182 5 (63609) Medical Systems Inc Tegaderm 4 x 4 3M 1 1626W 625982 661957 886454 5 (1626W) Medline Cath Medline 1 [id number] 062314 62564 170676 5 Pack ([id number]) DIAGNOSTIC St Jamar 1 854758 456001 945390 916245 3 0 WIRE .035 260cm J wire (825344) DIAGNOSTIC Cardinal 1 PI7834 312329 96414 452632 3 0 Multipack 5Fr Health catheter set (KW6519) SHEATH 5FR Terumo 1 KYJ020 580427 675880 626041 5 [place] (TXL692) MULTIPACK Cardinal 1 771948 5 Pigtail 5 Fr Health catheter MULTIPACK JL Cardinal 1 725106 5 4.0 5Fr Health catheter MULTIPACK 3DRC Cardinal 1 287465 5 5Fr catheter Health SHEATH 6FR Terumo 1 GGV984 572898 192416 890623 4 0 [place] (JUC735) INFLATOR Merit Merit 1 HA0129 997076 839583 333355 1 5 Sala International (OC4157) CHOICE PT Pitts 1 [id number] 026783 851530 878907 5 Extra Support Scientific 182cm wire ([id number]) GUIDE 6FR Cardinal 1 [id number] 412539 569010 658225 1 0 XBLAD 3.5 Health catheter (12589988) LASER ELCA 0.9 David 1 110-004 222632 577107 457467 5 Rx atherectomy Healthcare catheter (839694) (333774) RADHA RX 3.5 x Medtronic 1 [id number] 890948 3156162 072652 5 [id number] 15 stent ([id number]) EUPHORA 3.0 x Medtronic 1 [id number] 221565 055164 985394 5 [id number] 15 Balloon ([id number]) RADHA RX 3.0 x Medtronic 1 [id number] 392070 5757692 967555 5 [id number] 26 stent ([id number]) EXOSEAL 6Fr Cardinal 1 EX600 589560 995741 626161 1 0 (EX600) Health Signature Audit [place] Stage Time Signature Unsigned Intra-Procedure 10/05/2018 Jody 9:32:28 AM Counts RT(R) Signatures Monitor : Jody Signature : Counts RT Date : Time : [id number] [place] [address]
[2018-10-04] MEDS ORDERED: GLIMEPIRIDE4 MG PO (20:54)
[2018-10-04 21:21] VITALS: BP 122/99
[2018-10-04 21:49] LABS: BASOPHILS 0.5 % (0-2); EOSINOPHILS 4.8 % (0-7); HEMATOCRIT 41.5 % (36.0-48.0); HEMOGLOBIN 14.1 g/dL (12-16); IMMATURE GRANULOCYTES 0.5 % (0-5); LYMPHOCYTES 22.1 % (15-50); MCH 30.8 pg (26.0-34.0); MCV 90.6 fL (80.0-100.0); MEAN PLATELET VOLUME 9.4 fL (7.4-10.4); MONOCYTES 7.4 % (2-11); NEUTROPHILS 64.7 % (40-80); PLATELET COUNT 262 10x3/uL (130-400); RBC 4.58 10x6/uL (4.00-5.40); RDW 12.9 % (11.5-14.5); WBC 13.3 10x3/uL (4.8-10.8)
[2018-10-04 21:54] LABS: APTT 33.5 SECONDS (22.8-39.4); INR 1.05 (0.85-1.17); PROTIME 13.2 SECONDS (11.6-15.0)
[2018-10-04 22:01] LABS: ALBUMIN 3.2 g/dL (3.4-5.0); ALKALINE PHOSPHATASE 102 U/L (46-116); ALT (SGPT) 71 U/L (10-68); BILIRUBIN - TOTAL 0.38 mg/dL (0.2-1.3); CALC OSMOLALITY 283 mosm/kg (275-300); CALCIUM 8.8 mg/dL (8.5-10.1); CARBON DIOXIDE 23.4 mmol/L (21.0-32.0); CHLORIDE - SERUM 100 mmol/L (98-107); CREATININE - SERUM 0.7 mg/dL (0.6-1.3); GLUCOSE 223 mg/dL (74-106); POTASSIUM - SERUM 3.8 mmol/L (3.5-5.1); PROTEIN - SERUM 8.1 g/dL (6.4-8.2); SODIUM 139 mmol/L (136-145); UREA NITROGEN 9 mg/dL (7-18); eGFR NON AFRICAN AMERICAN 86 mL/min (90-120)
[2018-10-04 22:17] LABS: CKMB 1.6 U/L (0.0-3.6); CREATINE KINASE 219 UL (21-215); MAGNESIUM - SERUM 1.7 mg/dL (1.8-2.4)
[2018-10-04 22:19] LABS: TROPONIN-I 0.254 ng/mL (0.000-0.060)
[2018-10-04 22:40] VITALS: BP 144/85
--- NOTE | 2018-10-04 22:45 | NUR ---
PT STABLE, CALL LIGHT WITHIN REACH, DENIES NEEDS, WILL CONTINUE TO MONITOR.
[2018-10-04 23:37] VITALS: BP 141/88
[2018-10-05] VITALS (10 sets, daily range): BP systolic 80–149; BP diastolic 42–78; Ht 165.1 cm; Wt 72.7 kg
--- NOTE | 2018-10-05 00:28 | NUR ---
PT RESTING IN ROOM. AWAKE TO VOICE, DENIES NEEDS, WILL CONTINUE TO MONITOR.
[2018-10-05 01:24] LABS: APPEARANCE HAZY (CLEAR); COLOR YELLOW (YELLOW); SPECIFIC GRAVITY 1.015 (1.005-1.020)
[2018-10-05 01:25] LABS: BACTERIA MODERATE /hpf (NONE SEEN); BILIRUBIN NEGATIVE (NEGATIVE); EPITHELIAL CELLS 0-5 /hpf (0-5); GLUCOSE NEGATIVE (NEGATIVE); KETONE MODERATE mg/dL (NEGATIVE); MUCUS <1+ /lpf (NONE SEEN); NITRITE NEGATIVE (NEGATIVE); PROTEIN TRACE mg/dL (NEGATIVE); RED CELLS - URINE RARE /hpf (0-5); UROBILINOGEN NORMAL (NORMAL); WHITE CELLS - URINE 0-5 /hpf (0-5); YEAST <1+ /hpf (NONE SEEN)
--- NOTE | 2018-10-05 02:06 | NUR ---
ASSISTED PT TO RESTROOM. PT STABLE, CALL LIGHT WITHIN REACH, WILL CONTINUE TO MONITOR. DENIES NEEDS AT THIS TIME.
--- NOTE | 2018-10-05 03:05 | NUR ---
PT DENIES CP AT THIS TIME. COOL CLOTH GIVEN FOR HOT FOREHEAD. FAMILY AT BEDSIDE. HAS CARDIZEM DRIP INFUSING AT 10ML/HOUR WITH NO SIGNS OF INFILTRATION. NPO AND AWARE OF THIS STATUS. WILL MONITOR.
--- NOTE | 2018-10-05 04:24 | NUR ---
NITRO 0.4MG SL FOR CHEST PAIN 5/10.
--- NOTE | 2018-10-05 04:29 | NUR ---
PT'S B/P DROPPEDTO 70/43 AFTER 1 NITRO FOR CP OF 5/10. PT CONCERNED ABOUT SUGAR- FSBS IN THE 170'S.
--- NOTE | 2018-10-05 04:43 | NUR ---
PT'S B/P UP TO 80/48. PT STATES CHEST PAIN UNCHANGED.
--- NOTE | 2018-10-05 04:53 | NUR ---
PAIN DOWN TO A 3/10
[2018-10-05 05:01] LABS: BASOPHILS 0.3 % (0-2); EOSINOPHILS 0.8 % (0-7); HEMATOCRIT 43.2 % (36.0-48.0); HEMOGLOBIN 14.6 g/dL (12-16); IMMATURE GRANULOCYTES 0.4 % (0-5); LYMPHOCYTES 14.9 % (15-50); MCH 30.8 pg (26.0-34.0); MCHC 33.8 g/dL (31.0-37.0); MCV 91.1 fL (80.0-100.0); MEAN PLATELET VOLUME 9.5 fL (7.4-10.4); MONOCYTES 6.6 % (2-11); PLATELET COUNT 261 10x3/uL (130-400); RBC 4.74 10x6/uL (4.00-5.40); RDW 12.8 % (11.5-14.5); WBC 11.8 10x3/uL (4.8-10.8)
--- NOTE | 2018-10-05 05:02 | NUR ---
PT IS NPO- WILL HOLD INSULIN AT THIS TIME.
--- NOTE | 2018-10-05 05:15 | NUR ---
COOL PACK TO PATIENT. STATES CHEST PAIN SOMEWHAT BETTER. STATES MORPHINE DIDN'T HELP HER WHEN THE AMBULANCE BROUGHT HER EARLIER.
[2018-10-05 05:47] LABS: ALBUMIN 3.2 g/dL (3.4-5.0); ALKALINE PHOSPHATASE 95 U/L (46-116); ALT (SGPT) 69 U/L (10-68); CALC OSMOLALITY 280 mosm/kg (275-300); CALCIUM 8.8 mg/dL (8.5-10.1); CARBON DIOXIDE 26.4 mmol/L (21.0-32.0); CHLORIDE - SERUM 100 mmol/L (98-107); GLUCOSE 209 mg/dL (74-106); POTASSIUM - SERUM 4.3 mmol/L (3.5-5.1); PROTEIN - SERUM 8.1 g/dL (6.4-8.2); SODIUM 138 mmol/L (136-145); UREA NITROGEN 9 mg/dL (7-18)
[2018-10-05 05:50] LABS: CREATINE KINASE 343 UL (21-215); CREATININE - SERUM 0.9 mg/dL (0.6-1.3); eGFR NON AFRICAN AMERICAN 65 mL/min (90-120)
[2018-10-05 05:52] LABS: TROPONIN-I 3.511 ng/mL (0.000-0.060)
--- NOTE | 2018-10-05 06:05 | NUR ---
PT'S TROPONIN ELEVATED. DR RICO MADE AWARE. REPEAT EKG OBTAINED.
--- NOTE | 2018-10-05 06:35 | NUR ---
UP TO BR- HAD B/M- STILL HAS CHEST PAINS AROUND 3/10.
--- NOTE | 2018-10-05 06:45 | NUR ---
DR RICO IN TO SEE PATIENT. INSTRUCTED TO GIVE NITRO PASTE 1 ".
--- NOTE | 2018-10-05 07:10 | NUR ---
REPORT TO ADRIEL MALIN.
--- NOTE | 2018-10-05 07:18 | NUR ---
HAND-OFF REPORT RECIEVED FROM ADRIEL CHRISTOPHER. PT OBSERVED SITTING IN SEMI-CORNELIUS'S. RESPIRATIONS EVEN AND UNLABORED. NO SIGNS OF DISTRESS. PT ALERT AND ORIENTED. PT RATES CP 07/22. FAMILY MEMBER AT THE BEDSIDE. CALL LIGHT IN REACH. IV INFUSING ORDERED WITHOUT SIGNS OF INFILTRATION. WILL CONTINUE TO MONITOR. DR. RICO IN THE ED TO SEE PT AT APPROX. 0700.
--- NOTE | 2018-10-05 08:35 | NUR ---
INSTRUCTED TO ADMINISTER PRE-OP MEDICATION FOR CATH PROCEDURE AT THIS TIME. PT STATES THAT IV BENADRYL CAUSES HER TO HAVE "HALLUCINATIONS." THIS NURSE SPOKE WITH ADRIEL LEON IN ANESTHESIA ATTENDING TO EXPLAIN THAT ORDERED PRE-OP MED CAUSES ADVERSE REACTION, NOT ALLERGIC REACTION. THIS NURSE INSTRUCTED TO NOT ADMINISTER IV BENADRYL.
--- NOTE | 2018-10-05 10:00 | NUR ---
RECIEVED TO ROOM VIA STRETCHER FROM PATENT EXAMINER WITH 6 FR EXOSEAL R/GROIN CDI NO BLEEDING OR HEMATOMA NOTED. HR 72 BP 117/60 PATIENT COMPLAINS OF CHEST PAIN WITH PAIN RATED AT 2 ON SCALE OF 0-10 WILL MONITOR
--- NOTE | 2018-10-05 10:15 | NUR ---
6 FR EXOSEAL R/GROIN REMAINS CDI WITH NO BLEEDING PATIENT STATED NO CHANGE IN CHEST PAIN STILL AT 2 ON SCALE. VSS WITH HR 70 BP 119/57 INSTRUCTED PATIENT TO KEEP HEAD FLAT ON PILLOW WITH RLE STRAIGHT
--- NOTE | 2018-10-05 10:40 | NUR ---
PATIENT DENIED CHEST PAIN AT THIS TIME. HR 70 BP 120/58 6 FR EXOSEAL R/GROIN IS CDI
--- NOTE | 2018-10-05 11:12 | NUR ---
PATIENT CONTINUES TO REST WITH EYES CLOSED. 6 FR EXOSEAL R/GROIN IS CDI. DAUGHTER AT BEDSIDE
--- NOTE | 2018-10-05 11:34 | NUR ---
DR CABRERA AT BEDSIDE WITH NO NEW ORDERS AT THIS TIME. PATIENT VERBALIZED NO PAIN.
--- NOTE | 2018-10-05 11:44 | NUR ---
REPORT CALLED TO OFE ON MED 2 WITH PATIENT TRANSPORTED VIA STRETCHER TO ROOM 2162
--- NOTE | 2018-10-05 12:07 | NUR ---
TRANSFERED FROM GEOSPATIAL INFORMATION SCIENTIST BY STRETCHER. VS WNL. RIGHT GROIN STABLE WITHOUT BLEEDING OR HEMATOMA NOTED. WILL MONITOR.
--- NOTE | 2018-10-05 13:58 | NUR ---
BED REST UP. GROIN STABLE.
[2018-10-05 16:28] LABS: CREATINE KINASE 656 UL (21-215)
[2018-10-05 16:33] LABS: TROPONIN-I 21.228 ng/mL (0.000-0.060)
[2018-10-06 00:30] VITALS: BP 112/62
[2018-10-06 04:00] VITALS: BP 134/44
--- NOTE | 2018-10-06 04:13 | NUR ---
I have reviewed this patient and I concur with the Shift Assessment completed by the Licensed Practical Nurse today this shift.
--- NOTE | 2018-10-06 04:25 | NUR ---
RESTING WITH EYES CLOSED, RESPERATIONS EVEN, NO S/S DISTRESS NOTED.
--- NOTE | 2018-10-06 07:49 | NUR ---
CONSENTS SIGNED. PRE-OPS GIVEN. LEAVING FOR CLUB DIRECTOR BY BED.
--- NOTE | 2018-10-06 08:30 | OP ---
PATIENT NAME: MARLENY FITZPATRICK MEDICAL RECORD: [id number] :42 LOCATION:D.M2 D.2116 ADMISSION DATE: SURGEON: XOCHITL ACBRERA MD DATE OF OPERATION: 10/05/2018 DATE OF SERVICE: 10/05/2018 PROCEDURES: 1. PTCA stent LAD. 2. PTCA stent left circumflex. 3. Laser atherectomy LAD. 4. Left heart catheterization. 5. Selective coronary angiography. 6. Left ventriculogram. INDICATION: Angina, unstable angina and coronary artery disease. PROCEDURE IN DETAIL: After informed consent was obtained and after a detailed description of risks, benefits as well as alternative therapies, the patient elected to proceed with angiogram and angioplasty. The right femoral area was prepped and draped in normal sterile fashion. Right femoral artery was cannulated via modified Seldinger technique with placement of 6-Kinyarwanda sheath. All catheters exchanged through this sheath. FINDINGS: The left ventriculogram was performed in standard 30-degree EMMANUEL view, reveals good cardiac wall motion throughout all segments. Overall ejection fraction estimated at 60%. SELECTIVE CORONARY ANGIOGRAPHY: 1. Left main is with no significant angiographic disease. 2. Left anterior descending has previously placed stents with 99% in-stent restenosis in the. 3. Left circumflex has previously placed stents with 75% in-stent restenosis in the mid vessel. 4. The right coronary has previously placed stents, these are widely patent; however, there is 95-99% stenosis distally. LASER ATHERECTOMY OF THE LAD: The laser atherectomy catheter was used with a 0.9 catheter, multiple passes were made at 80/40. Stenting was undertaken of the LAD with a 3.0 x 26 mm [place]. Result was 0% residual stenosis. PTCA STENT OF THE LEFT CIRCUMFLEX: The stent used was a 3.5 x 15-mm [place]. Result was 0% residual stenosis. OVERALL IMPRESSION: Successful percutaneous transluminal coronary angioplasty stent and laser atherectomy of the left anterior descending going from 99% initial stenosis to 0% residual stenosis and successful percutaneous transluminal coronary angioplasty stent of the left circumflex going from 75% stenosis to 0% residual. PLAN: PTCA stent of the RCA in the near future. TRANSINT:[id number] Voice Confirmation ID: [id number] DOCUMENT ID: [id number] OPERATIVE REPORT [id number] MARLENY FITZPATRICK XOCHITL CABRERA MD at 0830 CC: [id number] DICTATION DATE: 10/05/18 [address] ATTENDANT: 10/05/18 [address] [place] [address]
--- NOTE | 2018-10-06 08:57 | NUR ---
BACK FROM RAILWAY YARD ASSISTANT. VS WNL. LEFT GROIN STABLE WITHOUT BLEEDING OR HEMATOMA NOTED. WILL MONITOR.
--- NOTE | 2018-10-06 10:19 | NUR ---
IV RESTARTED TO LEFT FA WITH 22 GAUGE X 1 STICK. PRE-OPS GIVEN BY REPAIRING CALIBRATOR. LEAVING FOR RESTORATIVE CARE TECHNICIAN BY BED.
[2018-10-06 10:38] LABS: BASOPHILS 0.2 % (0-2); EOSINOPHILS 3.1 % (0-7); HEMATOCRIT 38.9 % (36.0-48.0); HEMOGLOBIN 12.7 g/dL (12-16); IMMATURE GRANULOCYTES 0.3 % (0-5); LYMPHOCYTES 19.1 % (15-50); MCH 30.5 pg (26.0-34.0); MCHC 32.6 g/dL (31.0-37.0); MEAN PLATELET VOLUME 9.2 fL (7.4-10.4); MONOCYTES 9.2 % (2-11); NEUTROPHILS 68.1 % (40-80); PLATELET COUNT 212 10x3/uL (130-400); RBC 4.17 10x6/uL (4.00-5.40); WBC 12.2 10x3/uL (4.8-10.8)
[2018-10-06 10:39] LABS: MCV 93.3 fL (80.0-100.0)
[2018-10-06 10:46] LABS: CALC OSMOLALITY 275 mosm/kg (275-300); CARBON DIOXIDE 29.7 mmol/L (21.0-32.0); CHLORIDE - SERUM 103 mmol/L (98-107); CREATININE - SERUM 0.7 mg/dL (0.6-1.3); GLUCOSE 121 mg/dL (74-106); POTASSIUM - SERUM 4.2 mmol/L (3.5-5.1); SODIUM 138 mmol/L (136-145); UREA NITROGEN 9 mg/dL (7-18); eGFR NON AFRICAN AMERICAN 86 mL/min (90-120)
--- NOTE | 2018-10-06 12:57 | NUR ---
BED REST UP. GROIN STABLE.
--- NOTE | 2018-10-06 13:22 | NUR ---
IV AND TELEMETRY DCD. DC PLANS GIVEN. UNDERSTANDING VOICED. ESCORTED TO CAR BY W/C.
--- NOTE | 2018-10-08 15:03 | OP ---
PATIENT NAME: MARLENY FITZPATRICK MEDICAL RECORD: [id number] LOCATION:[facility] ADMISSION DATE: SURGEON: XOCHITL CABRERA MD DATE OF OPERATION: 10/06/2018 DATE OF SERVICE: 10/06/2018 PROCEDURES: 1. PTCA stent RCA. 2. Selective coronary angiography. PROCEDURE IN DETAIL: After informed consent was obtained and after a detailed description of the risks, benefits as well as alternative therapies, the patient elected to proceed with angiogram and angioplasty. The left femoral area was prepped and draped in normal sterile fashion. Left femoral artery was cannulated via modified Seldinger technique with placement of 6-[place] sheath. All catheters exchanged through this sheath. FINDINGS: The right coronary has multiple areas of 90% stenosis in the distal vessel. This was addressed with a 2.0 x 30 mm [place] stent. Result was 0% residual stenosis. OVERALL IMPRESSION: Successful percutaneous transluminal coronary angioplasty stent of the right coronary artery going from 90% initial stenosis to 0% residual. TRANSINT:[id number] Voice Confirmation ID: [id number] DOCUMENT ID: [id number] XOCHITL CABRERA MD at 1503 CC: [id number] DICTATION DATE: 10/06/18 0829 DIRECTOR WOMEN: 10/06/18 1237 DEP CLI 10/06/[address] [id number]
== END 2018-10-06 13:24 | disposition home or self-care (01) ==
LOC: OBSVTIME → D.M2 20:43 → D.ER 20:43 → D.CATH 20:43 → D.EDHOLD 23:20 → D.ER 23:20 → OBSVTIME 23:20 → D.M2 10-05 11:45 → D.CATH 10-06 13:24
PROVIDERS: Family Medicine; Internal Medicine Interventional Cardiology; ATTEND Internal Medicine Cardiovascular Disease
DX: I25.110 Atherosclerotic heart disease of native coronary artery with unstable angina pectoris (principal); T82.855A Stenosis of coronary artery stent, initial encounter; Z01.812 Encounter for preprocedural laboratory examination
CPT/HCPCS: 93458; C9602; C9600 ×2

== ENCOUNTER → 2019-04-01 10:23 | Outpatient (CLI) | payer MEDICARE ==
[2018-10-05 06:10] VITALS: BMI 26.6
[~2019-04-01 10:23] MED LIST changes: +GLIMEPIRIDE4 MG PO
== END | disposition home or self-care (01) ==
LOC: D.CT 10:23
PROVIDERS: ATTEND Family Medicine
DX: R10.31 Right lower quadrant pain (principal)

== ENCOUNTER → 2019-06-16 20:03 | Outpatient (CLI) | payer MEDICARE ==
[~2019-06-16 20:03] MED LIST changes: +PRAVACHOL40 MG PO
== END | disposition home or self-care (01) ==
LOC: D.LABREF 20:03
PROVIDERS: ATTEND Urology
DX: N39.0 Urinary tract infection, site not specified (principal)